=== PATIENT | male | born 1960 | race Caucasian/White ===

== ENCOUNTER 2017-09-04 09:26 | Emergency (ER) | payer BC, MEDICARE ==
[2017-09-04] MEDS ORDERED: METOCLOPRAMIDE HCL INJ/PF 10 MG/2 ML SDV IV ONE (09:38)
[2017-09-04] MEDS ORDERED: NORMAL SALINE 1000 ML 1,000 ML IV ONE (09:38)
--- NOTE | 2017-09-04 09:53 | ER Document Report ---
ED General - General Chief Complaint: Nausea/Vomiting/Diarrhea Stated Complaint: WEAKNESS Time Seen by Provider: 09/04/17 09:38 Mode of Arrival: Medic Information source: Patient Notes: 56-year-old male history of hiatal hernia repair multiple surgeries on the abdomen presents with complaints of nausea vomiting. Patient notes he is consistently nauseous vomiting and having abdominal pain every single day. Patient is noted to state that he is going to [place] on the to have experimental medication for this TRAVEL OUTSIDE OF THE [place] IN LAST 30 DAYS: No - HPI Onset: Other Onset/Duration: Persistent Quality of pain: Achy Severity: Mild Pain Level: 2 Associated symptoms: Nausea, Vomiting Exacerbated by: Denies Relieved by: Other - Intermittently nausea vomiting Similar symptoms previously: Yes Recently seen / treated by doctor: Yes - Related Data Allergies/Adverse Reactions: celecoxib [From Celebrex] Allergy (Verified 09/04/17 09:39) ibuprofen [From Motrin] Allergy (Verified 09/04/17 09:39) Past Medical History - Social History Smoking Status: Current Every Day Smoker Cigarette use (# per day): Yes Chew tobacco use (# tins/day): No Smoking Education Provided: No Frequency of alcohol use: Occasional Drug Abuse: None Family History: Reviewed & Not Pertinent Patient has suicidal ideation: No Patient has homicidal ideation: No - Past Medical History Cardiac Medical History: Reports: Hx Congestive Heart Failure, Hx Hypertension Renal/ Medical History: Denies: Hx Peritoneal Dialysis Past Surgical History: Reports: Hx Abdominal Surgery, Hx Appendectomy, Hx Orthopedic Surgery - L spine, Hx Tonsillectomy - Immunizations Hx Diphtheria, Pertussis, Tetanus Vaccination: Yes Review of Systems - Review of Systems Notes: REVIEW OF SYSTEMS: CONSTITUTIONAL : Denies fever, chills, or sweats. Denies recent illness. EENT: Denies eye, ear, throat, or mouth pain or symptoms. Denies nasal or sinus congestion or discharge. Denies throat, tongue, or mouth swelling or difficulty swallowing. CARDIOVASCULAR: Denies chest pain. Denies palpitations or racing or irregular heart beat. Denies ankle edema. RESPIRATORY: Denies cough, cold, or chest congestion. Denies shortness of breath, difficulty breathing, or wheezing. GASTROINTESTINAL: Admits to nausea vomiting GENITOURINARY: Denies difficulty urinating, painful urination, burning, frequency, blood in urine, or discharge. MUSCULOSKELETAL: Denies back or neck pain or stiffness. Denies joint pain or swelling. SKIN: Denies rash, lesions or sores. HEMATOLOGIC : Denies easy bruising or bleeding. LYMPHATIC: Denies swollen, enlarged glands. NEUROLOGICAL: Denies confusion or altered mental status. Denies passing out or loss of consciousness. Denies dizziness or lightheadedness. Denies headache. Denies weakness or paralysis or loss of use of either side. Denies problems with gait or speech. Denies sensory loss, numbness, or tingling. Denies seizures. PSYCHIATRIC: Denies anxiety or stress. Denies depression, suicidal ideation, or homicidal ideation. ALL OTHER SYSTEMS REVIEWED AND NEGATIVE. Dictation was performed using [employer] voice recognition software PHYSICAL EXAMINATION: GENERAL: Well-appearing, well-nourished and in no acute distress. HEAD: Atraumatic, normocephalic. EYES: Pupils equal round and reactive to light, extraocular movements intact, sclera anicteric, conjunctiva are normal. ENT: Nares patent, oropharynx clear without exudates. Moist mucous membranes. NECK: Normal range of motion, supple without lymphadenopathy LUNGS: Breath sounds clear to auscultation bilaterally and equal. No wheezes rales or rhonchi. HEART: Regular rate and rhythm without murmurs ABDOMEN: Soft, nontender, nondistended abdomen. No guarding, no rebound. No masses appreciated. Postsurgical changes noted Musculoskeletal: Normal range of motion, no pitting or edema. No cyanosis. NEUROLOGICAL: Cranial nerves grossly intact. Normal speech, normal gait. Normal sensory, motor exams PSYCH: Normal mood, normal affect. SKIN: Warm, Dry, normal turgor, no rashes or lesions noted. Physical Exam - Vital signs Vitals: Temp 98 F 09/04/17 09:36 Course - Re-evaluation Re-evalutation: 09/04/17 10:03 Patient will be given nausea pain control IV fluids, he is at his chronic state , he does have follow-up on the with this experimental medication tendency and I do not see any specific treatment that we can give him at this time that would actually cure him therefore he must continue with this follow-up 09/04/17 11:45 Lab work notes no life-threatening issues, patient was given nausea control has not vomited in the emergency department will be discharged home After performing a Medical Screening Examination, I estimate there is LOW risk for ACUTE APPENDICITIS, BOWEL OBSTRUCTION, ACUTE CHOLECYSTITIS, PERFORATED DIVERTICULITIS, INCARCERATED HERNIA, PANCREATITIS, TESTICULAR TORSION or PERFORATED ULCER, thus I consider the discharge disposition reasonable. Also, there is no evidence or peritonitis, sepsis, or toxicity. I have reevaluated this patient multiple times and no significant life threatening changes are noted. The patient and I have discussed the diagnosis and risks, and we agree with discharging home with close follow-up with the understanding that symptoms and presentations can change. We also discussed returning to the Emergency Department immediately if new or worsening symptoms occur. We have discussed the symptoms which are most concerning (e.g., bloody stool, fever, changing or worsening pain, intractable vomiting - standard verbal up date) that necessitate immediate return. - Vital Signs Vital signs: Temp Pulse Resp BP Pulse Ox 98 F 22 H 172/94 H 98 09/04/17 09:36 09/04/17 11:00 09/04/17 11:00 09/04/17 11:00 - Laboratory Result Diagrams: 09/04/17 09:38 09/04/17 09:38 Laboratory results interpreted by me: 09/04/17 09/04/17 09/04/17 09:38 09:38 10:30 Hgb 12.8 L RDW 15.4 H Carbon Dioxide 21 L Glucose 114 H Urine Glucose (UA) 150 H Discharge - Discharge Clinical Impression: Nausea vomiting and diarrhea Condition: Stable Disposition: HOME, SELF-CARE Instructions: Vomiting ([facility]) Additional Instructions: Follow up with your physician tomorrow for further care or return to the ED IMMEDIATELY if symptoms worsen or new concerns occur. If you cannot afford to follow up with your primary care physician a list of low cost clinics have been provided at the end of your discharge papers as well. Prescriptions: Promethazine HCl [Promethegan] 50 mg RC Q6 #14 supp.rect
[2017-09-04 09:58] LABS: ABSOLUTE LYMPHOCYTES (AUTO) 1.9 10^3/uL (0.5-4.7); ABSOLUTE MONOCYTES (AUTO) 0.8 10^3/uL (0.1-1.4); ABSOLUTE NEUT (AUTO) 5.1 10^3/uL (1.7-8.2); BASOPHILS % (AUTO) 0.3 % (0-2); EOSINOPHILS % (AUTO) 0.6 % (0-6); HEMATOCRIT 38.3 % (37.9-51.0); HEMOGLOBIN 12.8 g/dL (13.5-17.0); HGB HCT DIFFERENCE 0.1; LYMPHOCYTES % (AUTO) 24.3 % (13-45); MEAN CORPUSCULAR HEMOGLOBIN 27.4 pg (27.0-33.4); MEAN CORPUSCULAR HGB CONC 33.4 g/dL (32.0-36.0); MEAN CORPUSCULAR VOLUME 82 fl (80-97); MONOCYTES % (AUTO) 9.9 % (3-13); RED BLOOD COUNT 4.68 10^6/uL (4.35-5.55); RED CELL DISTRIBUTION WIDTH 15.4 % (11.5-14.0); SEGMENTED NEUTROPHILS % (AUTO) 64.9 % (42-78); WHITE BLOOD COUNT 7.8 10^3/uL (4.0-10.5)
[2017-09-04 10:56] LABS: ALANINE AMINOTRANSFERASE 23 U/L (21-72); ALBUMIN 4.1 g/dL (3.5-5.0); ALKALINE PHOSPHATASE 86 U/L (38-126); ANION GAP 13 (5-19); ASPARTATE AMINO TRANSFERASE 17 U/L (17-59); BILIRUBIN,DIRECT 0.4 mg/dL (0.0-0.4); BILIRUBIN,TOTAL 0.5 mg/dL (0.2-1.3); BLOOD UREA NITROGEN 9 mg/dL (7-20); CALCIUM 9.4 mg/dL (8.4-10.2); CARBON DIOXIDE 21 mmol/L (22-30); CHLORIDE 105 mmol/L (98-107); CREATININE RESULT 0.88 mg/dL (0.52-1.25); GLUCOSE 114 mg/dL (75-110); LIPASE 38.7 U/L (23-300); POTASSIUM 3.6 mmol/L (3.6-5.0); SODIUM 139.3 mmol/L (137-145); TOTAL PROTEIN 6.8 g/dL (6.3-8.2)
[2017-09-04 10:59] LABS: APPEARANCE,URINE CLEAR; BILIRUBIN,URINE NEGATIVE (NEGATIVE); GLUCOSE, URINE 150 mg/dL (NEGATIVE); KETONES,URINE NEGATIVE (NEGATIVE); LEUKOCYTE ESTERASE,URINE NEGATIVE (NEGATIVE); NITRITE,URINE NEGATIVE (NEGATIVE); PROTEIN,URINE NEGATIVE (NEGATIVE); URINE SPECIFIC GRAVITY 1.012; UROBILINOGEN,URINE NEGATIVE mg/dL (<2.0)
[2017-09-04] MEDS ORDERED: HALOPERIDOL LACTATE INJ 5 MG/1 ML VIAL IV ONE (11:45)
[2017-09-04] MEDS ORDERED: DIPHENHYDRAMINE HCL 50 MG/ML VIAL IV ONE (11:45)
[2017-09-04 12:08] VITALS: BP 180/103
== END 2017-09-04 12:08 | disposition home or self-care (01) ==
LOC: ER 09:26
DX: R11.2 Nausea with vomiting, unspecified (principal); R19.7 Diarrhea, unspecified; F17.210 Nicotine dependence, cigarettes, uncomplicated; I50.9 Heart failure, unspecified; I11.0 Hypertensive heart disease with heart failure
CPT/HCPCS: 99285; 96361; 96374; 36415; 96375; 83690; 85025; 80053; 81001; J1200; J1630; J2765; J7030

== ENCOUNTER 2017-12-10 13:51 | Emergency (ER) | payer MEDICARE, BC ==
[2017-12-10] MEDS ORDERED: NORMAL SALINE 1000 ML 1,000 ML IV ONE (14:09)
[2017-12-10] MEDS ORDERED: MORPHINE SULFATE 10 MG/ML INJ IV ONE (14:09)
[2017-12-10] MEDS ORDERED: ONDANSETRON HCL INJ/PF 4 MG/2 ML SDV IV ONE (14:09)
--- NOTE | 2017-12-10 14:11 | ER Document Report ---
ED Medical Screen (RME) - General Chief Complaint: Abdominal Pain Stated Complaint: ABDOMINAL PAIN Time Seen by Provider: 12/10/17 14:08 Mode of Arrival: Wheelchair Information source: Patient TRAVEL OUTSIDE OF THE U.S. IN LAST 30 DAYS: No - HPI Patient complains to provider of: abd pain Onset: Yesterday - pt with abd pain since surgery for hernia repair last year with exacerbation of pain today with N/V and "dry heaves." - Related Data Allergies/Adverse Reactions: celecoxib [From Celebrex] Allergy (Verified 12/10/17 14:04) ibuprofen [From Motrin] Allergy (Verified 12/10/17 14:04) Home Medications: Current Home Medications Oxycodone HCl/Acetaminophen [Percocet 10-325 Mg Tablet] 1 each PO Q6 PRN [History] Scopolamine 1 each TD ASDIR PRN 12/10/17 [History] Past Medical History - Social History Chew tobacco use (# tins/day): No Frequency of alcohol use: None Drug Abuse: None - Past Medical History Cardiac Medical History: Reports: Hx Congestive Heart Failure, Hx Hypertension Renal/ Medical History: Denies: Hx Peritoneal Dialysis Past Surgical History: Reports: Hx Abdominal Surgery, Hx Appendectomy, Hx Orthopedic Surgery - L spine, Hx Tonsillectomy - Immunizations Hx Diphtheria, Pertussis, Tetanus Vaccination: Yes History of Influenza Vaccine for 08/2017 - 01/2018 Season: No Physical Exam - Vital signs Vitals: Temp Pulse Resp BP Pulse Ox 98.2 F 72 20 200/101 H 97 12/10/17 13:55 12/10/17 13:55 12/10/17 13:55 12/10/17 13:55 12/10/17 13:55 Course - Vital Signs Vital signs: Temp Pulse Resp BP Pulse Ox 98.2 F 72 20 200/101 H 97 12/10/17 13:55 12/10/17 13:55 12/10/17 13:55 12/10/17 13:55 12/10/17 13:55
[2017-12-10 15:28] LABS: APPEARANCE,URINE CLEAR; BILIRUBIN,URINE NEGATIVE (NEGATIVE); COLOR,URINE STRAW; GLUCOSE, URINE NEGATIVE (NEGATIVE); KETONES,URINE NEGATIVE (NEGATIVE); LEUKOCYTE ESTERASE,URINE NEGATIVE (NEGATIVE); NITRITE,URINE NEGATIVE (NEGATIVE); PROTEIN,URINE NEGATIVE (NEGATIVE); URINE SPECIFIC GRAVITY 1.009; UROBILINOGEN,URINE NEGATIVE mg/dL (<2.0)
[2017-12-10] MEDS ORDERED: METOCLOPRAMIDE HCL ORAL SOLN 10 MG/10 ML UDCUP PO ONE (16:15)
[2017-12-10] MEDS ORDERED: LIDOCAINE 2% VISCOUS SOLN 20 ML UDCUP PO ONE (16:15)
[2017-12-10] MEDS ORDERED: MAG HYDROX/AL HYDROX/SIMETH SUSP 30 ML UDCUP PO ONE (16:15)
--- NOTE | 2017-12-10 16:15 | ER Document Report ---
ED General - General Chief Complaint: Abdominal Pain Stated Complaint: ABDOMINAL PAIN Time Seen by Provider: 12/10/17 14:08 Mode of Arrival: Wheelchair Notes: Patient is a 57-year-old male who presents emergency department complaining of abdominal pain. Patient past medical history is significant for his complaint today regarding the fact that he has a history of gastroparesis complication from a hiatal hernia repair and fundoplication done a year ago. Patient states that he does follow with pain management for this condition taking home Percocet , Zofran, Reglan and Phenergan. Patient states that he did take all that prior to arrival. Patient states that approximately 8 AM he started having nausea and dry heaving for approximately 3 hours. Patient then states that he had right chest wall pain after dry heaving that is since resolved but intermittently is worse with movement. He otherwise denies any significant nausea or tenderness at this time. He states that he has been having his normal bowel movements and passing gas. He denies any burping that is abnormal for him. Patient's primary care is with Dr. lady Rosado, does not have a manager post. He follows with pain management in [place]. Patient states that he is supposed to go up to [place] in December for some sort of gastric nerve stimulator to help with his gastroparesis. Past medical history significant for hypertension, kidney stones, gastroparesis , congestive heart failure Past surgical history significant for hiatal hernia repair with fundoplication a year ago, previous back surgery, inguinal hernia repair, appendectomy Social history: Former smoker, denies any alcohol or drug use. Allergies to Motrin and Celebrex TRAVEL OUTSIDE OF THE [place] IN LAST 30 DAYS: No - Related Data Allergies/Adverse Reactions: celecoxib [From Celebrex] Allergy (Verified 12/10/17 14:04) ibuprofen [From Motrin] Allergy (Verified 12/10/17 14:04) Home Medications: Current Home Medications Oxycodone HCl/Acetaminophen [Percocet 10-325 Mg Tablet] 1 each PO Q6 PRN [History] Scopolamine 1 each TD ASDIR PRN 12/10/17 [History] Past Medical History - General Information source: Patient - Social History Smoking Status: Former Smoker Chew tobacco use (# tins/day): No Frequency of alcohol use: None Drug Abuse: None Family History: Reviewed & Not Pertinent Patient has suicidal ideation: No Patient has homicidal ideation: No - Past Medical History Cardiac Medical History: Reports: Hx Congestive Heart Failure, Hx Hypertension Renal/ Medical History: Denies: Hx Peritoneal Dialysis Past Surgical History: Reports: Hx Abdominal Surgery, Hx Appendectomy, Hx Orthopedic Surgery - L spine, Hx Tonsillectomy - Immunizations Hx Diphtheria, Pertussis, Tetanus Vaccination: Yes Review of Systems - Review of Systems Constitutional: No symptoms reported Cardiovascular: No symptoms reported Respiratory: No symptoms reported Gastrointestinal: See HPI Musculoskeletal: See HPI -: Yes All other systems reviewed and negative Physical Exam - Vital signs Vitals: Temp Pulse Resp BP Pulse Ox 98.2 F 72 20 200/101 H 97 12/10/17 13:55 12/10/17 13:55 12/10/17 13:55 12/10/17 13:55 12/10/17 13:55 - Notes Notes: PHYSICAL EXAM GENERAL: Alert, interacts well. HEAD: Normocephalic, atraumatic. EYES: Pupils equal, round, and reactive to light. Extraocular movements intact. ENT: Oral mucosa moist, tongue midline. NECK: Full range of motion. Supple. Trachea midline. LUNGS: Clear to auscultation bilaterally, no wheezes, rales, or rhonchi. No respiratory distress. HEART: Regular rate and rhythm. No murmurs, gallops, or rubs. ABDOMEN: Soft, nondistended, nontender. No guarding, rebound, or rigidity.. Bowel sounds present in all 4 quadrants. EXTREMITIES: Moves all 4 extremities spontaneously. No edema, radial and dorsalis pedis pulses 2/4 bilaterally. No cyanosis. NEUROLOGICAL: Alert and oriented x4. Normal speech. PSYCH: Normal affect, normal mood. SKIN: Warm, dry, normal turgor. No rashes or lesions noted. Course - Re-evaluation Re-evalutation: 12/10/17 18:29 Patient is a 57-year-old male who is hemodynamically stable, no acute distress and afebrile. CT of the abdomen pelvis with IV contrast was ordered up in triage. Labs do not show any evidence of leukocytosis or anemia. Chemistry stable without any evidence of electrolyte abnormalities, liver failure, AK I. Lipase is normal. Urinalysis without evidence of infection. CT of the abdomen pelvis with IV contrast shows evidence of proximal small bowel dilation. I did discuss these results with surgical list Dr. Mancini who states that this patient needs a scan with p.o. contrast to see if it is passing this area otherwise ruling out need for admission for small bowel obstruction. 12/10/17 18:37 Went to go discussed the plan with the patient. When I entered the room there was Nepali food sitting on the countertop. Patient states that he did eat some of it days not had any pain is been able to keep it down. Discussed with him that the surgeon had recommended an additional CT scan with p.o. contrast but if he feels like his pain is completely resolved and that he is tolerating food there is no indication for this test at this time if he would prefer to go home and follow-up with us as needed if his symptoms return. Patient states that he does not want a CT scan and he would rather go home. Discussed with him strict return precautions and otherwise is stable for discharge home. I did review this new plan with Dr. Mancini who is agreeable. - Vital Signs Vital signs: Temp Pulse Resp BP Pulse Ox 98.2 F 72 22 H 185/112 H 100 12/10/17 13:55 12/10/17 13:55 12/10/17 18:06 12/10/17 18:06 12/10/17 18:06 - Laboratory Result Diagrams: 12/10/17 16:46 12/10/17 16:46 Laboratory results interpreted by me: 12/10/17 12/10/17 16:46 16:46 Hgb 11.1 L Hct 35.1 L MCH 25.2 L MCHC 31.7 L RDW 14.4 H Chloride 108 H AST 15 L Lipase 21.1 L - Diagnostic Test Radiology reviewed: Image reviewed, Reports reviewed Discharge - Discharge Clinical Impression: Gastroparesis Hypertension Qualifiers: Hypertension type: unspecified Qualified Code(s): I10 - Essential (primary) hypertension Condition: Good Disposition: HOME, SELF-CARE Instructions: Bowel Obstruction ([facility]) Additional Instructions: You have been seen in the Emergency Department (ED) today for nausea and vomiting. Your work up today is consistent with your history of gastroparesis. Follow up with your doctor as soon as possible regarding today's emergent visit and your symptoms of nausea. Return to the Emergency Department (ED) if you develop abdominal pain, bloody vomiting, bloody diarrhea, if you are unable to tolerate fluids due to vomiting , or if you develop other symptoms that concern you. Forms: Elevated Blood Pressure
[2017-12-10 17:10] LABS: ABSOLUTE BASOPHILS # (AUTO) 0.1 10^3/uL (0.0-0.2); ABSOLUTE EOSINOPHILS # (AUTO) 0.1 10^3/uL (0.0-0.6); ABSOLUTE LYMPHOCYTES (AUTO) 1.9 10^3/uL (0.5-4.7); ABSOLUTE MONOCYTES (AUTO) 0.6 10^3/uL (0.1-1.4); ABSOLUTE NEUT (AUTO) 2.5 10^3/uL (1.7-8.2); BASOPHILS % (AUTO) 1.7 % (0-2); EOSINOPHILS % (AUTO) 2.2 % (0-6); HEMATOCRIT 35.1 % (37.9-51.0); HEMOGLOBIN 11.1 g/dL (13.5-17.0); LYMPHOCYTES % (AUTO) 35.8 % (13-45); MEAN CORPUSCULAR HEMOGLOBIN 25.2 pg (27.0-33.4); MEAN CORPUSCULAR HGB CONC 31.7 g/dL (32.0-36.0); MEAN CORPUSCULAR VOLUME 80 fl (80-97); MONOCYTES % (AUTO) 11.3 % (3-13); PLATELET COUNT 237 10^3/uL (150-450); RED BLOOD COUNT 4.41 10^6/uL (4.35-5.55); RED CELL DISTRIBUTION WIDTH 14.4 % (11.5-14.0); TOTAL CELLS COUNTED % (AUTO) 100 %; WHITE BLOOD COUNT 5.2 10^3/uL (4.0-10.5)
[2017-12-10 17:31] LABS: ALANINE AMINOTRANSFERASE 24 U/L (21-72); ALKALINE PHOSPHATASE 86 U/L (38-126); ANION GAP 12 (5-19); ASPARTATE AMINO TRANSFERASE 15 U/L (17-59); BILIRUBIN,DIRECT 0.2 mg/dL (0.0-0.4); BILIRUBIN,TOTAL 0.5 mg/dL (0.2-1.3); BLOOD UREA NITROGEN 7 mg/dL (7-20); CALCIUM 9.3 mg/dL (8.4-10.2); CARBON DIOXIDE 23 mmol/L (22-30); CHLORIDE 108 mmol/L (98-107); GLUCOSE 84 mg/dL (75-110); LIPASE 21.1 U/L (23-300); POTASSIUM 3.9 mmol/L (3.6-5.0); SODIUM 143.2 mmol/L (137-145); TOTAL PROTEIN 6.3 g/dL (6.3-8.2)
--- NOTE | 2017-12-10 18:04 | RADIOLOGY REPORT (SQ) ---
EXAM DESCRIPTION: CT ABD/PELVIS WITH IV ONLY COMPLETED DATE/TIME: 12/10/2017 5:51 pm REASON FOR STUDY: ABD PAIN COMPARISON: None. TECHNIQUE: CT scan of the abdomen and pelvis performed using helical scanning technique with dynamic intravenous contrast injection. No oral contrast. Images reviewed with lung, soft tissue, and bone windows. Reconstructed coronal and sagittal MPR images reviewed. Delayed images for evaluation of the urinary system also acquired. All images stored on PACS. All CT scanners at this facility use dose modulation, iterative reconstruction, and/or weight based d osing when appropriate to reduce radiation dose to as low as reasonably achievable (ALARA). [facility]: Dose Right [facility]: CareDose [facility]: Dose Right [facility]: Teradose 4D [facility]: WeGame CONTRAST TYPE AND DOSE: contrast/concentration: Isovue 370.00 mg/ml; Total Contrast Delivered: 100.0 ml; Total Saline Delivered: 72.0 ml RENAL FUNCTION: BUN 7 creatinine 0.91. RADIATION DOSE: CT Rad equipment meets quality standard of care and radiation dose reduction techniq ues were employed. CTDIvol: 15.1 - 18.8 mGy. DLP: 1808 mGy-cm.. LIMITATIONS: None. FINDINGS: LOWER CHEST: No significant findings. No nodules or infiltrates. LIVER: Normal size. No masses. No dilated ducts. SPLEEN: Normal size. No focal lesions. PANCREAS: No masses. No significant calcifications. No adjacent inflammation or peripancreatic fluid collections. Pancreatic duct not dilated. GALLBLADDER: No identified stones by CT criteria. No inflammatory changes to suggest cholecystitis. ADRENAL GLANDS: No significant masses or asymmetry. RIGHT KIDNEY AND URETER: No solid masses. 3 mm calculus in a lower pole calyx. No hydronephrosis or hydroureter. LEFT KIDNEY AND URETER: Cortical cyst. No solid masses. 5 mm calyceal calculus. No hydronephrosi s or hydroureter. AORTA AND VESSELS: No aneurysm. No dissection. Renal arteries, SMA, celiac without stenosis. RETROPERITONEUM: No retroperitoneal adenopathy, hemorrhage or masses. BOWEL AND PERITONEAL CAVITY: Small hiatal hernia. Surgical changes involving the stomach. Mild dila tion of the proximal small bowel. Distal small bowel not distended. A few scattered colonic diverti culi. No masses or inflammatory changes. No free fluid or peritoneal masses. APPENDIX: Surgically absent. PELVIS: No mass. No free fluid. Normal bladder. ABDOMINAL WALL: No masses. No hernias. BONES: No significant or acute findings. OTHER: No other significant finding. IMPRESSION: 1. MILD DILATION OF PROXIMAL SMALL BOWEL. THIS COULD REPRESENT MILD ILEUS. EARLY PARTIAL OBSTRUCTIO N CANNOT BE ENTIRELY EXCLUDED. 2. MILD COLONIC DIVERTICULOSIS. NO CT FINDINGS OF ACUTE DIVERTICULITIS. 3. SMALL NONOBSTRUCTING CALYCEAL CALCULI IN BOTH KIDNEYS. CORTICAL CYST IN THE LEFT KIDNEY. 4. NO OTHER SIGNIFICANT OR ACUTE FINDING IN THE ABDOMEN OR PELVIS ON CT SCAN WITH IV CONTRAST. TECHNICAL DOCUMENTATION: JOB ID: [id number] Quality ID # [id number]: Final reports with documentation of one or more dose reduction techniques (e.g., Au tomated exposure control, adjustment of the mA and/or kV according to patient size, use of iterative reconstruction technique) 2010 [employer]- All Rights Reserved
[2017-12-10 18:46] VITALS: BP 185/112
== END 2017-12-10 18:51 | disposition home or self-care (01) ==
LOC: ER 13:51
DX: K31.84 Gastroparesis (principal); I10 Essential (primary) hypertension; Z98.890 Other specified postprocedural states; Z79.899 Other long term (current) drug therapy; Z79.891 Long term (current) use of opiate analgesic; Z87.442 Personal history of urinary calculi; Z90.49 Acquired absence of other specified parts of digestive tract; Z87.891 Personal history of nicotine dependence; Z88.6 Allergy status to analgesic agent; Z88.8 Allergy status to other drugs, medicaments and biological substances
CPT/HCPCS: 99284; 96361; 96374; 96375; 36415; 83690; 85025; 80053; 81001; 74177; J3490; A9270; J2270; J2405; J7030

== ENCOUNTER 2017-12-18 23:43 | Emergency (ER) | payer BC, MEDICARE ==
[2017-12-18] MEDS ORDERED: HALOPERIDOL LACTATE INJ 5 MG/1 ML VIAL IV ONE (23:52)
[2017-12-18] MEDS ORDERED: NORMAL SALINE 1000 ML 1,000 ML IV ONE (23:52)
--- NOTE | 2017-12-19 00:19 | ER Document Report ---
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 Patient has had a fundal application and is unable to vomit. He notes he continues to have loose bowel movements as well as pass flatus. His pain is described as a generalized, constant, aching pain. Nothing improves or worsens the pain including the medications he has been taking. He is scheduled to go to [place] for a nerve stimulator implantation. He denies any fever or constitutional symptoms. Nothing is particularly different about his symptoms today relative to his chronic daily symptoms. TRAVEL OUTSIDE OF THE [place] IN LAST 30 DAYS: No - Related Data Allergies/Adverse Reactions: celecoxib [From Celebrex] Allergy (Verified 12/10/17 14:04) ibuprofen [From Motrin] Allergy (Verified 12/10/17 14:04) Past Medical History - General Information source: Patient - Social History Smoking Status: Former Smoker Frequency of alcohol use: None Drug Abuse: None Lives with: Spouse/Significant other Family History: Reviewed & Not Pertinent Patient has suicidal ideation: No Patient has homicidal ideation: No - Past Medical History Cardiac Medical History: Reports: Hx Congestive Heart Failure, Hx Hypertension Renal/ Medical History: Denies: Hx Peritoneal Dialysis GI Medical History: Reports: Hx Hiatal Hernia Past Surgical History: Reports: Hx Abdominal Surgery, Hx Appendectomy, Hx Orthopedic Surgery - L spine, Hx Tonsillectomy - Immunizations Hx Diphtheria, Pertussis, Tetanus Vaccination: Yes Review of Systems - Review of Systems Notes: Constitutional: Negative for fever. HENT: Negative for sore throat. Eyes: Negative for visual changes. Cardiovascular: Negative for chest pain. Respiratory: Negative for shortness of breath. Gastrointestinal: Positive for abdominal pain and nausea Genitourinary: Negative for dysuria. Musculoskeletal: Negative for back pain. Skin: Negative for rash. Neurological: Negative for headaches, weakness or numbness. 10 point ROS negative except as marked above and in HPI. Physical Exam - Vital signs Vitals: Temp Pulse Resp BP Pulse Ox 97.9 F 75 16 179/82 H 97 12/19/17 00:00 12/19/17 00:00 12/19/17 00:00 12/19/17 00:00 12/19/17 00:00 Interpretation: Hypertensive Notes: PHYSICAL EXAMINATION: GENERAL: Well-appearing, well-nourished and in no acute distress. HEAD: Atraumatic, normocephalic. EYES: Pupils equal round and reactive to light, extraocular movements intact, sclera anicteric, conjunctiva are normal. ENT: nares patent, oropharynx clear without exudates. Moist mucous membranes. NECK: Normal range of motion, supple without lymphadenopathy LUNGS: Breath sounds clear to auscultation bilaterally and equal. No wheezes rales or rhonchi. HEART: Regular rate and rhythm without murmurs ABDOMEN: Soft, no focal abdominal tenderness, rebound or guarding. Moderate distention. D. EXTREMITIES: Normal range of motion, no pitting or edema. No cyanosis. NEUROLOGICAL: No focal neurological deficits. Moves all extremities spontaneously and on command. PSYCH: Normal mood, normal affect. SKIN: Warm, Dry, normal turgor, no rashes or lesions noted. Course - Re-evaluation Re-evalutation: 12/19/17 00:17 Patient presents with ongoing chronic generalized abdominal pain with associated nausea but is unable to vomit secondary to a fundoplication that was completed during his prior surgery. Nothing is new or different regarding his symptoms today relative to the past year although he states that he is tired of feeling this way. Patient was seen in the emergency room for a similar issue less than 1 month ago, had a CT scan of the time that showed a possible ileus but was able to eat Greek food in the emergency department without any apparent difficulty so subsequently was discharged. On abdominal examination patient does not have any focal rebound or guarding. Otherwise nontoxic in appearance. Does not appear clinically dehydrated. Has been able tolerate oral fluids already. Will obtain basic laboratories, 2 view of the abdomen to evaluate for obstruction, and provide treatment with IV fluids, haloperidol, and pain control. I do not wish to repeat a CT abdomen pelvis as the patient had one of these less than 2 weeks ago and notes his symptoms are not new or different today. I have a very low clinical suspicion for a bowel perforation, mesenteric ischemia, acute biliary pathology or acute appendicitis based on exam and history. Will obtain 2 view of the abdomen to further exclude an acute obstruction for which have a low clinical suspicion as patient is passing flatus and having regular bowel movements. 12/19/17 01:48 2 view of the abdomen and labs are unremarkable. Patient continues to be in no acute distress, vitals within normal limits. At this time will discharge with return precautions and follow-up recommendations. Verbal discharge instructions given a the bedside and opportunity for questions given. Medication warnings reviewed. Patient is in agreement with this plan and has verbalized understanding of return precautions and the need for primary care follow-up in the next 24-72 hours. - Vital Signs Vital signs: Temp Pulse Resp BP Pulse Ox 97.9 F 75 16 179/82 H 97 12/19/17 00:00 12/19/17 00:00 12/19/17 00:00 12/19/17 00:00 12/19/17 00:00 - Laboratory Result Diagrams: 12/19/17 00:32 12/19/17 00:32 Laboratory results interpreted by me: 12/19/17 12/19/17 00:32 00:32 RBC 4.16 L Hgb 10.4 L Hct 32.8 L MCV 79 L MCH 25.1 L MCHC 31.8 L RDW 14.7 H Glucose 189 H AST 14 L Total Protein 6.1 L Discharge - Discharge Clinical Impression: Chronic abdominal pain, Gastroparesis Condition: Good Disposition: HOME, SELF-CARE Additional Instructions: Your labs and x-ray are normal today. Please continue to follow-up with your general doctors regarding your chronic abdominal pain. Return if you become unable to tolerate oral fluid intake, have worsening of your pain, develop a fever of greater than 101F, or any other symptoms that are worrisome to you.
[2017-12-19 00:53] LABS: ABSOLUTE BASOPHILS # (AUTO) 0.1 10^3/uL (0.0-0.2); ABSOLUTE EOSINOPHILS # (AUTO) 0.1 10^3/uL (0.0-0.6); ABSOLUTE MONOCYTES (AUTO) 0.9 10^3/uL (0.1-1.4); ABSOLUTE NEUT (AUTO) 4.4 10^3/uL (1.7-8.2); BASOPHILS % (AUTO) 0.8 % (0-2); HEMATOCRIT 32.8 % (37.9-51.0); HEMOGLOBIN 10.4 g/dL (13.5-17.0); LYMPHOCYTES % (AUTO) 26.2 % (13-45); MEAN CORPUSCULAR HEMOGLOBIN 25.1 pg (27.0-33.4); MEAN CORPUSCULAR HGB CONC 31.8 g/dL (32.0-36.0); MEAN CORPUSCULAR VOLUME 79 fl (80-97); MONOCYTES % (AUTO) 11.6 % (3-13); PLATELET COUNT 173 10^3/uL (150-450); RED BLOOD COUNT 4.16 10^6/uL (4.35-5.55); RED CELL DISTRIBUTION WIDTH 14.7 % (11.5-14.0); SEGMENTED NEUTROPHILS % (AUTO) 59.4 % (42-78); TOTAL CELLS COUNTED % (AUTO) 100 %; WHITE BLOOD COUNT 7.5 10^3/uL (4.0-10.5)
[2017-12-19 00:54] LABS: ALANINE AMINOTRANSFERASE 22 U/L (21-72); ALBUMIN 3.9 g/dL (3.5-5.0); ALKALINE PHOSPHATASE 78 U/L (38-126); ANION GAP 11 (5-19); ASPARTATE AMINO TRANSFERASE 14 U/L (17-59); BILIRUBIN,DIRECT 0.2 mg/dL (0.0-0.4); BILIRUBIN,TOTAL 0.2 mg/dL (0.2-1.3); BLOOD UREA NITROGEN 14 mg/dL (7-20); CARBON DIOXIDE 22 mmol/L (22-30); CHLORIDE 107 mmol/L (98-107); GLUCOSE 189 mg/dL (75-110); LIPASE 28.4 U/L (23-300); POTASSIUM 3.7 mmol/L (3.6-5.0); SODIUM 139.7 mmol/L (137-145); TOTAL PROTEIN 6.1 g/dL (6.3-8.2)
--- NOTE | 2017-12-19 01:09 | RADIOLOGY REPORT (SQ) ---
EXAM DESCRIPTION: ABDOMEN 2 VIEWS CLINICAL HISTORY: 57 years, Male, eval obstruction COMPARISON: None. NUMBER OF VIEWS: 2 LIMITATIONS: None. FINDINGS: Few nonspecific air-fluid levels of the right lower abdomen. No dilated bowel. Otherwise, unremarkable intestinal gas pattern. 0.6 cm left renal stone consistent with prior CT, 12/10/2017. Surgical clip at the gastroesophageal junction. Mild osteoarthritis. Bridging osteophytes at the L4-L5 level. IMPRESSION: No acute findings. 0.6 cm left renal stone.
[2017-12-19] MEDS ORDERED: FENTANYL CITRATE INJ/PF 100 MCG/2 ML AMPUL IV ONE (01:36)
[2017-12-19] MEDS ORDERED: HYDROMORPHONE HCL INJ/PF 2 MG/ML AMPULE IV ONE (01:36)
[2017-12-19 02:35] VITALS: BP 157/88
== END 2017-12-19 02:32 | disposition home or self-care (01) ==
LOC: ER 23:43
DX: G89.29 Other chronic pain (principal); R10.9 Unspecified abdominal pain; K31.84 Gastroparesis; I50.9 Heart failure, unspecified; I11.0 Hypertensive heart disease with heart failure; Z88.6 Allergy status to analgesic agent
CPT/HCPCS: 99284; 96361; 96374; 96375; 36415; 83690; 85025; 80053; 74019; J3010; J1630; J7030

== ENCOUNTER 2018-01-06 18:50 | Emergency (ER) | payer BC, MEDICARE ==
[2018-01-06] MEDS ORDERED: NORMAL SALINE 1000 ML 1,000 ML IV ONE (19:35)
[2018-01-06] MEDS ORDERED: ONDANSETRON HCL INJ/PF 4 MG/2 ML SDV IV ONE (19:35)
--- NOTE | 2018-01-06 19:35 | ER Document Report ---
ED Medical Screen (RME) - General Chief Complaint: Vomiting Stated Complaint: VOMITING Time Seen by Provider: 01/06/18 19:30 Mode of Arrival: Wheelchair Information source: Patient Notes: 57 yo male presents to ed for abdominal pain and vomiting since am. Had a H Hernia surgery year ago that went bad and went to [place] for possible stomach stimulator. got home yesterday. I assesses in RME for triage orders, will be assessed by another provider. TRAVEL OUTSIDE OF THE [place] IN LAST 30 DAYS: No - Related Data Allergies/Adverse Reactions: celecoxib [From Celebrex] Allergy (Verified 01/06/18 18:50) ibuprofen [From Motrin] Allergy (Verified 01/06/18 18:50) Past Medical History - Past Medical History Cardiac Medical History: Reports: Hx Congestive Heart Failure, Hx Hypertension Renal/ Medical History: Denies: Hx Peritoneal Dialysis GI Medical History: Reports: Hx Hiatal Hernia Past Surgical History: Reports: Hx Abdominal Surgery, Hx Appendectomy, Hx Orthopedic Surgery - L spine, Hx Tonsillectomy - Immunizations Hx Diphtheria, Pertussis, Tetanus Vaccination: Yes History of Influenza Vaccine for 08/2017 - 01/2018 Season: No Physical Exam - Vital signs Vitals: Temp Pulse Resp BP Pulse Ox 98.6 F 89 20 155/91 H 96 01/06/18 18:57 01/06/18 18:57 01/06/18 18:57 01/06/18 18:57 01/06/18 18:57 Course - Vital Signs Vital signs: Temp Pulse Resp BP Pulse Ox 98.6 F 89 20 155/91 H 96 01/06/18 18:57 01/06/18 18:57 01/06/18 18:57 01/06/18 18:57 01/06/18 18:57
[2018-01-06 20:29] LABS: ABSOLUTE EOSINOPHILS # (AUTO) 0.2 10^3/uL (0.0-0.6); ABSOLUTE LYMPHOCYTES (AUTO) 2.5 10^3/uL (0.5-4.7); ABSOLUTE MONOCYTES (AUTO) 0.8 10^3/uL (0.1-1.4); BASOPHILS % (AUTO) 0.2 % (0-2); EOSINOPHILS % (AUTO) 2.2 % (0-6); HEMATOCRIT 34.7 % (37.9-51.0); HEMOGLOBIN 10.9 g/dL (13.5-17.0); LYMPHOCYTES % (AUTO) 33.8 % (13-45); MEAN CORPUSCULAR HEMOGLOBIN 24.2 pg (27.0-33.4); MEAN CORPUSCULAR HGB CONC 31.4 g/dL (32.0-36.0); MEAN CORPUSCULAR VOLUME 77 fl (80-97); MONOCYTES % (AUTO) 10.1 % (3-13); PLATELET COUNT 267 10^3/uL (150-450); RED CELL DISTRIBUTION WIDTH 15.2 % (11.5-14.0); SEGMENTED NEUTROPHILS % (AUTO) 53.7 % (42-78); TOTAL CELLS COUNTED % (AUTO) 100 %; WHITE BLOOD COUNT 7.4 10^3/uL (4.0-10.5)
[2018-01-06] MEDS ORDERED: ACETAMINOPHEN 325 MG TABLET PO ONE (20:46)
[2018-01-06 20:49] LABS: APPEARANCE,URINE CLEAR; BILIRUBIN,URINE NEGATIVE (NEGATIVE); COLOR,URINE YELLOW; GLUCOSE, URINE NEGATIVE (NEGATIVE); KETONES,URINE NEGATIVE (NEGATIVE); LEUKOCYTE ESTERASE,URINE NEGATIVE (NEGATIVE); NITRITE,URINE NEGATIVE (NEGATIVE); PROTEIN,URINE NEGATIVE (NEGATIVE); URINE SPECIFIC GRAVITY 1.023; UROBILINOGEN,URINE NEGATIVE mg/dL (<2.0)
[2018-01-06 20:52] LABS: ALANINE AMINOTRANSFERASE 18 U/L (21-72); ALBUMIN 4.3 g/dL (3.5-5.0); ALKALINE PHOSPHATASE 97 U/L (38-126); ANION GAP 8 (5-19); ASPARTATE AMINO TRANSFERASE 42 U/L (17-59); BILIRUBIN,DIRECT 0.4 mg/dL (0.0-0.4); BILIRUBIN,TOTAL 0.4 mg/dL (0.2-1.3); BLOOD UREA NITROGEN 15 mg/dL (7-20); CALCIUM 9.4 mg/dL (8.4-10.2); CARBON DIOXIDE 23 mmol/L (22-30); CHLORIDE 109 mmol/L (98-107); GLUCOSE 92 mg/dL (75-110); LIPASE 51.2 U/L (23-300); POTASSIUM 4.1 mmol/L (3.6-5.0); SODIUM 140.3 mmol/L (137-145); TOTAL PROTEIN 6.9 g/dL (6.3-8.2)
--- NOTE | 2018-01-06 21:59 | ER Document Report ---
ED GI/ - General Chief Complaint: Vomiting Stated Complaint: VOMITING Time Seen by Provider: 01/06/18 19:30 Mode of Arrival: Wheelchair Information source: Patient Notes: 57-year-old male presents to ED for abdominal pain and vomiting since a.m. He states he had a hiatal hernia surgery about a year ago that went bad. He went into [facility] just got home yesterday to research having a possible stomach stimulator for his abdominal pain that is been going on for over a year ago. He has a medical history of chronic abdominal pain and chronic gastroparesis after the complicated hiatal hernia surgery. He has nausea and dry heaving which is chronic. He denies any fever. He states his abdominal pain today is different than his normal chronic pain any needs narcotics today. TRAVEL OUTSIDE OF THE [place] IN LAST 30 DAYS: No - HPI Patient complains to provider of: Abdominal pain, Vomiting - Dry heaves and vomiting since morning Onset: This morning Timing/Duration: Persistent - This is a chronic condition Quality of pain: Sharp Severity at maximum: Severe Severity in ED: Severe Pain Level: 5 Location: Epigastric - And generalized abdominal pain Associated symptoms: Nausea, Vomiting Exacerbated by: Denies Relieved by: Denies Similar symptoms previously: Yes Recently seen / treated by doctor: Yes - Related Data Allergies/Adverse Reactions: celecoxib [From Celebrex] Allergy (Verified 01/06/18 19:34) ibuprofen [From Motrin] Allergy (Verified 01/06/18 19:34) Past Medical History - General Information source: Patient - Social History Smoking Status: Former Smoker Cigarette use (# per day): No Chew tobacco use (# tins/day): No Smoking Education Provided: No Frequency of alcohol use: None Drug Abuse: None Lives with: Family Family History: Reviewed & Not Pertinent Patient has suicidal ideation: No Patient has homicidal ideation: No - Past Medical History Cardiac Medical History: Reports: Hx Congestive Heart Failure, Hx Hypertension Pulmonary Medical History: Reports: None EENT Medical History: Reports: None Neurological Medical History: Reports: None Endocrine Medical History: Reports: None Renal/ Medical History: Reports: None Malignancy Medical History: Reports None GI Medical History: Reports: Hx Gastritis, Hx Hiatal Hernia Musculoskeltal Medical History: Reports None Skin Medical History: Reports None Psychiatric Medical History: Reports: None Traumatic Medical History: Reports: None Infectious Medical History: Reports: None Past Surgical History: Reports: Hx Abdominal Surgery - Fundoplication, Hx Appendectomy, Hx Orthopedic Surgery - L spine, Hx Tonsillectomy - Immunizations Hx Diphtheria, Pertussis, Tetanus Vaccination: Yes Review of Systems - Review of Systems Notes: Constitutional: as per HPI. ABSENT: chills, fever(s), headache(s), weight gain , weight loss Eyes: Negative for visual disturbances] Ears: Get a 4 hearing changes] Cardiovascular: Negative for chest pain, dyspnea on exertion, edema, orthropnea , palpitations] Respiratory: Negative for cough, hemoptysis] Gastrointestinal: Positive for abdominal pain, nausea, vomiting, denies constipation, diarrhea, hematemesis, hematochezia, Genitourinary: Denies: dysuria, hematuria Musculoskeletal: Denies joint pain joint swelling] Integumentary: Negative: rash, wounds Neurological: Negative abnormal gait, abnormal speech, confusion, dizziness, focal weakness, syncope Physical Exam - Vital signs Vitals: Temp Pulse Resp BP Pulse Ox 98.6 F 89 20 155/91 H 96 01/06/18 18:57 01/06/18 18:57 01/06/18 18:57 01/06/18 18:57 01/06/18 18:57 - General Notes: PHYSICAL EXAMINATION: GENERAL: Well-appearing, well-nourished and in no acute distress. HEAD: Atraumatic, normocephalic. EYES: Pupils equal round and reactive to light, extraocular movements intact, sclera anicteric, conjunctiva are normal. ENT: Nares patent, oropharynx clear without exudates. Moist mucous membranes. NECK: Normal range of motion, supple without lymphadenopathy LUNGS: Breath sounds clear to auscultation bilaterally and equal. No wheezes rales or rhonchi. HEART: Regular rate and rhythm without murmurs ABDOMEN: Soft, generalized tender, nondistended abdomen. No guarding, no rebound. No masses appreciated. Musculoskeletal: Normal range of motion, no pitting or edema. No cyanosis. NEUROLOGICAL: Cranial nerves grossly intact. Normal speech, normal gait. Normal sensory, motor exams PSYCH: Angry due to not receiving narcotics for his chronic pain. SKIN: Warm, Dry, normal turgor, no rashes or lesions noted. Course - Re-evaluation Re-evalutation: 01/06/18 22:28 Patient presents with ongoing chronic abdominal pain with nausea symptoms from vomiting due to his stated fundoplication and gastroparesis. He states he went to the new doctor in [place] on the seventh and was told that he can only drink a half a cup of Gatorade at a time with saltine crackers on exam he does not have any point tenderness bowel sounds are active throughout there is no rebound or guarding. He is a nontoxic-appearing gentleman who has had ongoing abdominal pain for about a year. I have treated him with Zofran which stopped his nausea and vomiting and Tylenol but he states the pain is the same. I have also given him a liter of fluids and he is able to tolerate his Gatorade with no nausea and vomiting continually is asking for narcotics and I have explained to him with his gastroparesis that orthotics are not appropriate. I have also explained to him that we do not treat chronic pain with narcotics. He just had a CT of the abdomen and pelvis about 2 months ago and today his abdominal x-ray is negative for any air-fluid levels or signs of obstruction. CBC and chemistry are unchanged from his visit on 12/19/2017. Patient and were very upset about being discharged without medications. A consult to Dr. Walker who went in and talked with the patient. He was treated with 1 mg of Dilaudid and 3 mg of Haldol IV and then discharged home. Discharge discussed with patient and warnings and concerns for narcotics discussed with patient and . Instructions given to return to the ED for any increase in pain or any increase in nausea vomiting or any fevers. Patient and were instructed to follow-up with her primary doctor within the next 72 hours - Vital Signs Vital signs: Temp Pulse Resp BP Pulse Ox 98.0 F 86 18 164/91 H 96 01/06/18 23:00 01/06/18 23:00 01/06/18 23:01 01/06/18 23:00 01/06/18 23:00 - Laboratory Result Diagrams: 01/06/18 19:55 01/06/18 19:55 Laboratory results interpreted by me: 01/06/18 01/06/18 19:55 19:55 Hgb 10.9 L Hct 34.7 L MCV 77 L MCH 24.2 L MCHC 31.4 L RDW 15.2 H Chloride 109 H ALT 18 L - Diagnostic Test Radiology reviewed: Image reviewed, Reports reviewed Discharge - Discharge Clinical Impression: Chronic abdominal pain, Gastroparesis HTN (hypertension) Qualifiers: Hypertension type: unspecified Qualified Code(s): I10 - Essential (primary) hypertension Condition: Good Disposition: HOME, SELF-CARE Additional Instructions: Labs and x-rays are normal today. Please continue to follow-up with you primary doctor concerning your chronic abdominal pain. Please follow-up with the doctor in [place] that is supposed to decide on your abdominal stimulator. Return to the emergency room if you are unable to tolerate tolerate oral fluids. Or you develop a temperature above 101F or any other symptoms that are concerning or worrisome for you. Chronic Pain Control Stress, inactivity, and depression make pain more severe regardless of the cause of the pain. Stress and poor physical condition can cause pain such as headaches and backache. Relaxation: Rest in a quiet place with your eyes closed for 20 minutes twice daily. Concentrate on a pleasant image, or simply "feel" your breathing. Clear your mind. Stress management: Deal with your "stressors." Either take action, or eliminate the stressor from your life. Don't let things hang over you. Accept those things you can't change. Nutrition: Eat small, balanced meals -- don't skip, don't overeat. Meals should be high-carbohydrate, low-sugar, low-fat. Exercise: Exercise helps painful conditions and eases stress. Get 30 minutes of moderate exercise, five days a week. Do an activity that does not flare your pain. Precautions: Pain which continues to disrupt daily activities, or which changes in nature, requires a medical evaluation. Pain Clinic referral is available. We do not manage chronic pain in the Emergency Department. We will try to appropriately help you through an acute flare of your chronic painful condition , but for on-going chronic pain that does not improve, you will need to see your private doctor or chest painting leader. We do not provide repeated medication management of chronic painful conditions. If you wish, we can provide the name of local pain management physicians. FOLLOW-UP CARE: If you have been referred to a physician for follow-up care, call the physician s office for an appointment as you were instructed or within the next two days. If you experience worsening or a significant change in your symptoms, notify the physician immediately or return to the Emergency Department at any time for re-evaluation. Forms: Elevated Blood Pressure
--- NOTE | 2018-01-06 21:59 | RADIOLOGY REPORT (SQ) ---
EXAM DESCRIPTION: ACUTE ABDOMEN SERIES COMPLETED DATE/TIME: 01/06/2018 9:50 pm REASON FOR STUDY: upper abdominal pian nausea COMPARISON: 12/19/2017. NUMBER OF VIEWS: Three views. TECHNIQUE: Frontal chest, supine abdomen and upright/decubitus abdomen radiographic images acquired. LIMITATIONS: None. FINDINGS: CHEST: Lungs clear of infiltrates. FREE AIR: None. No abnormal gas collections. BOWEL GAS PATTERN: Nonobstructive pattern. No dilated loops or air fluid levels. CALCIFICATIONS: Left renal calculus. HARDWARE: None in the abdomen. SOFT TISSUES: No gross mass or suggestion of organomegaly. BONES: No acute fracture. No worrisome bone lesions. OTHER: No other significant finding. IMPRESSION: NO RADIOGRAPHIC EVIDENCE FOR ACUTE ABDOMINAL DISEASE. LEFT RENAL CALCULUS. TECHNICAL DOCUMENTATION: JOB ID: [id number] [employer]- All Rights Reserved
[2018-01-06] MEDS ORDERED: KETOROLAC TROMETHAMINE INJ/PF 30 MG/1 ML SDV IV ONE (22:24)
[2018-01-06] MEDS ORDERED: HALOPERIDOL LACTATE INJ 5 MG/1 ML VIAL IV ONE (22:47)
[2018-01-06] MEDS ORDERED: HYDROMORPHONE HCL INJ/PF 2 MG/ML AMPULE IV ONE (22:47)
[2018-01-06 23:01] VITALS: BP 164/91
== END 2018-01-06 23:09 | disposition home or self-care (01) ==
LOC: ER 18:50
DX: G89.29 Other chronic pain (principal); R10.84 Generalized abdominal pain; K31.84 Gastroparesis; R11.2 Nausea with vomiting, unspecified; I10 Essential (primary) hypertension; Z87.19 Personal history of other diseases of the digestive system; Z98.890 Other specified postprocedural states; Z88.8 Allergy status to other drugs, medicaments and biological substances; Z88.6 Allergy status to analgesic agent; Z87.891 Personal history of nicotine dependence; Z90.49 Acquired absence of other specified parts of digestive tract
CPT/HCPCS: 99284; 96361; 96374; 96375; 36415; 83690; 85025; 80053; 81001; 74022; J1630; J1885; J1170; J2405; J7030

== ENCOUNTER 2018-02-27 15:18 | Emergency (ER) | payer BC, MEDICARE ==
[2018-02-27 15:29] VITALS: BP 172/89
[2018-02-27] MEDS ORDERED: NORMAL SALINE 1000 ML 1,000 ML IV PRN (16:21)
[2018-02-27] MEDS ORDERED: DIPHENHYDRAMINE HCL 50 MG/ML VIAL IV ONE (16:21)
[2018-02-27] MEDS ORDERED: PROCHLORPERAZINE EDISYLATE INJ 10 MG/2 ML VIAL IV ONE (16:21)
--- NOTE | 2018-02-27 16:22 | ER Document Report ---
ED Medical Screen (RME) - General Chief Complaint: Nausea/Vomiting Stated Complaint: VOMITING, STOMACH PAIN Time Seen by Provider: 02/27/18 16:16 TRAVEL OUTSIDE OF THE [place] IN LAST 30 DAYS: No - HPI Notes: 02/27/18 16:21 Patient with a history of gastroparesis Misti fundoplication states he has been using the Zofran Reglan Phenergan and Benadryl today with no relief of his nausea nausea ongoing for 3 days - Related Data Allergies/Adverse Reactions: celecoxib [From Celebrex] Allergy (Verified 02/27/18 15:21) ibuprofen [From Motrin] Allergy (Verified 02/27/18 15:21) Past Medical History - Social History Frequency of alcohol use: None Drug Abuse: None - Past Medical History Cardiac Medical History: Reports: Hx Congestive Heart Failure, Hx Hypertension Renal/ Medical History: Denies: Hx Peritoneal Dialysis GI Medical History: Reports: Hx Gastritis, Hx Hiatal Hernia Past Surgical History: Reports: Hx Abdominal Surgery - Fundoplication, Hx Appendectomy, Hx Bowel Surgery, Hx Orthopedic Surgery - L spine, Hx Tonsillectomy - Immunizations Hx Diphtheria, Pertussis, Tetanus Vaccination: Yes History of Influenza Vaccine for 08/2017 - 01/2018 Season: No Review of Systems - Review of Systems Gastrointestinal: Abdominal pain, Nausea, Vomiting -: Yes All other systems reviewed and negative Physical Exam - Vital signs Vitals: Temp Pulse Resp BP Pulse Ox 98.1 F 92 20 172/89 H 96 02/27/18 15:27 02/27/18 15:27 02/27/18 15:27 02/27/18 15:27 02/27/18 15:27 - Abdominal Tenderness: Nontender. No: McBurney's point, Muhammad's sign, Guarding, Rebound Course - Re-evaluation Re-evalutation: 02/27/18 16:22 I have greeted and performed a rapid initial assessment of this patient. A comprehensive ED assessment and evaluation of the patient, analysis of test results and completion of the medical decision making process will be conducted by additional ED providers. - Vital Signs Vital signs: Temp Pulse Resp BP Pulse Ox 98.1 F 92 20 172/89 H 96 02/27/18 15:27 02/27/18 15:27 02/27/18 15:27 02/27/18 15:27 02/27/18 15:27
[2018-02-27 17:21] LABS: ABSOLUTE BASOPHILS # (AUTO) 0.1 10^3/uL (0.0-0.2); ABSOLUTE EOSINOPHILS # (AUTO) 0.1 10^3/uL (0.0-0.6); ABSOLUTE LYMPHOCYTES (AUTO) 3.4 10^3/uL (0.5-4.7); ABSOLUTE NEUT (AUTO) 3.6 10^3/uL (1.7-8.2); BASOPHILS % (AUTO) 0.7 % (0-2); EOSINOPHILS % (AUTO) 1.5 % (0-6); HEMATOCRIT 34.3 % (37.9-51.0); HEMOGLOBIN 10.9 g/dL (13.5-17.0); LYMPHOCYTES % (AUTO) 41.1 % (13-45); MEAN CORPUSCULAR HEMOGLOBIN 23.8 pg (27.0-33.4); MEAN CORPUSCULAR HGB CONC 31.9 g/dL (32.0-36.0); MEAN CORPUSCULAR VOLUME 75 fl (80-97); MONOCYTES % (AUTO) 12.9 % (3-13); PLATELET COUNT 212 10^3/uL (150-450); RED BLOOD COUNT 4.59 10^6/uL (4.35-5.55); RED CELL DISTRIBUTION WIDTH 15.8 % (11.5-14.0); SEGMENTED NEUTROPHILS % (AUTO) 43.8 % (42-78); TOTAL CELLS COUNTED % (AUTO) 100 %; WHITE BLOOD COUNT 8.2 10^3/uL (4.0-10.5)
[2018-02-27 17:33] LABS: ALANINE AMINOTRANSFERASE 21 U/L (21-72); ALBUMIN 4.2 g/dL (3.5-5.0); ALKALINE PHOSPHATASE 95 U/L (38-126); ANION GAP 10 (5-19); ASPARTATE AMINO TRANSFERASE 14 U/L (17-59); BILIRUBIN,DIRECT 0.1 mg/dL (0.0-0.4); BILIRUBIN,TOTAL 0.2 mg/dL (0.2-1.3); BLOOD UREA NITROGEN 17 mg/dL (7-20); CALCIUM 9.2 mg/dL (8.4-10.2); CARBON DIOXIDE 27 mmol/L (22-30); CHLORIDE 106 mmol/L (98-107); GLUCOSE 53 mg/dL (75-110); LIPASE 34.3 U/L (23-300); POTASSIUM 3.5 mmol/L (3.6-5.0); SODIUM 143.1 mmol/L (137-145); TOTAL PROTEIN 6.2 g/dL (6.3-8.2)
--- NOTE | 2018-02-27 17:48 | ER Document Report ---
ED General - General Chief Complaint: Nausea/Vomiting Stated Complaint: VOMITING, STOMACH PAIN Time Seen by Provider: 02/27/18 16:16 TRAVEL OUTSIDE OF THE [place] IN LAST 30 DAYS: No - HPI Notes: Note patient was initially seen by the physician in triage who placed orders. 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 By description, he is a history of chronic gastroparesis with intermittent bouts of vomiting and worsening, and multiple ED visits for the same. States for the last day or 2 days had increasing pain in his mid upper abdomen, sharp aching crampy, nonradiating. He has been "dry heaving" but not actually vomiting food or fluid. Multiple times per day. Normal bowel movements. This feels like previous exacerbations. No other modifying factors, no other associated symptoms, no other provocative or palliative factors. He is scheduled to have some type of evaluation surgery in [place] in the next couple of months for what sounds to be some type of pacer implantation. - Related Data Allergies/Adverse Reactions: celecoxib [From Celebrex] Allergy (Verified 02/27/18 15:21) ibuprofen [From Motrin] Allergy (Verified 02/27/18 15:21) Past Medical History - Social History Smoking Status: Never Smoker Frequency of alcohol use: None Drug Abuse: None Family History: Reviewed & Not Pertinent Patient has suicidal ideation: No Patient has homicidal ideation: No - Past Medical History Cardiac Medical History: Reports: Hx Congestive Heart Failure, Hx Hypertension Renal/ Medical History: Denies: Hx Peritoneal Dialysis GI Medical History: Reports: Hx Gastritis, Hx Hiatal Hernia Other: Gastroparesis Past Surgical History: Reports: Hx Abdominal Surgery - Fundoplication, Hx Appendectomy, Hx Bowel Surgery, Hx Orthopedic Surgery - L spine, Hx Tonsillectomy - Immunizations Hx Diphtheria, Pertussis, Tetanus Vaccination: Yes Review of Systems - Review of Systems Notes: Review of systems as in the history of present illness otherwise negative Physical Exam - Vital signs Vitals: Temp Pulse Resp BP Pulse Ox 98.1 F 92 20 172/89 H 96 02/27/18 15:27 02/27/18 15:27 02/27/18 15:27 02/27/18 15:27 02/27/18 15:27 - Notes Notes: General: Well developed . HEENT: Normocephalic, atraumatic. Pupils equal round reactive to light. No JVD. Chest: No trauma. Respiratory: Good air exchange, normal excursion. Cardiac: Regular rhythm. No murmurs or gallops. Abdomen: Soft, benign. Distended, normal bowel sounds. No guarding rigidity or rebound. On distracted examination he is really minimal epigastric tenderness. Back: No asymmetry or gross abnormality. Motor: Grossly normal power and tone. Neurologic: Alert, nonfocal. Cranial nerves II-12 are intact. Sensation intact. Vascular: Well perfused. Normal peripheral pulses. Skin: No petechiae or purpura. Course - Re-evaluation Re-evalutation: 02/27/18 17:48 Complicated 57-year-old male with the aforementioned symptoms. Suspect this is an exacerbation of his underlying gastroparesis, less likely bowel obstruction. Doubt perforation. Doubt abdominal ischemia or arterial insufficiency. Patient did already receive presented diphenhydramine with modest improvement. Labs are pending, x-rays are pending. Patient is tolerance to opiates and may benefit from utilization of haloperidol which would help treat both nausea as well as modulate perception of pain. 02/27/18 18:31 Labs reviewed, grossly unremarkable. On reassessment on several occasions, the patient has a benign abdomen with no significant tenderness on distracted exam. He does still complain of pain, however, I believe this is a chronic issue. Escalation opiates would not serve him well may adversely affect his gut motility. I have asked that he follow close with his primary care physician, return if worsening. Of note, acute abdominal series is unremarkable. - Vital Signs Vital signs: Temp Pulse Resp BP Pulse Ox 98.1 F 92 20 172/89 H 96 02/27/18 15:27 02/27/18 15:27 02/27/18 15:27 02/27/18 15:27 02/27/18 15:27 - Laboratory Result Diagrams: 02/27/18 16:55 02/27/18 16:55 Laboratory results interpreted by me: 02/27/18 02/27/18 16:55 16:55 Hgb 10.9 L Hct 34.3 L MCV 75 L MCH 23.8 L MCHC 31.9 L RDW 15.8 H Potassium 3.5 L Glucose 53 L AST 14 L Total Protein 6.2 L - Diagnostic Test Radiology reviewed: Reports reviewed - No acute abnormality Discharge - Discharge Clinical Impression: Abdominal pain Qualifiers: Abdominal location: upper abdomen, unspecified Qualified Code(s): R10.10 - Upper abdominal pain, unspecified Disposition: HOME, SELF-CARE Instructions: Abdominal Pain ([facility]) Additional Instructions: Contact your primary care doctor and the physician who manages your chronic pain and gastroparesis tomorrow Prescriptions: Ondansetron [Zofran Odt 4 mg Tablet] 1 - 2 tab PO Q4H PRN #15 tab.rapdis PRN Reason: For Nausea/Vomiting
--- NOTE | 2018-02-27 18:13 | RADIOLOGY REPORT (SQ) ---
EXAM DESCRIPTION: ACUTE ABDOMEN SERIES COMPLETED DATE/TIME: 02/27/2018 5:55 pm REASON FOR STUDY: nv COMPARISON: None. NUMBER OF VIEWS: Three views. TECHNIQUE: Frontal chest, supine abdomen and upright/decubitus abdomen radiographic images acquired. LIMITATIONS: None. FINDINGS: CHEST: Lungs clear of infiltrates. FREE AIR: None. No abnormal gas collections. BOWEL GAS PATTERN: Copious colonic gas in a nonspecific, non obstructed pattern. No dilated loops or air fluid levels. CALCIFICATIONS: No suspicious calcifications. HARDWARE: Surgical clips and chain sutures are seen in the epigastrium. SOFT TISSUES: No gross mass or suggestion of organomegaly. BONES: No acute fracture. No worrisome bone lesions. OTHER: No other significant finding. IMPRESSION: NO RADIOGRAPHIC EVIDENCE FOR ACUTE ABDOMINAL DISEASE. TECHNICAL DOCUMENTATION: JOB ID: [id number] [employer]- All Rights Reserved Reading location - IP/workstation name: [email or web address]
== END 2018-02-27 18:59 | disposition home or self-care (01) ==
LOC: ER 15:18
DX: K31.84 Gastroparesis (principal); R10.13 Epigastric pain; R14.0 Abdominal distension (gaseous); I10 Essential (primary) hypertension; Z87.19 Personal history of other diseases of the digestive system; Z98.890 Other specified postprocedural states; Z88.6 Allergy status to analgesic agent; Z90.49 Acquired absence of other specified parts of digestive tract
CPT/HCPCS: 99284; 96361; 96374; 96375; 36415; 83690; 85025; 80053; 74022; J1200; J0780; J7030

== ENCOUNTER 2018-03-01 22:58 | Emergency (ER) | payer BC, MEDICARE ==
[2018-03-02] MEDS ORDERED: MORPHINE SULFATE 10 MG/ML INJ IM ONE (00:44)
[2018-03-02] MEDS ORDERED: PROMETHAZINE HCL INJ 25 MG/1 ML VIAL IM ONE (00:44)
--- NOTE | 2018-03-02 00:52 | ER Document Report ---
ED General - General Chief Complaint: Abdominal Pain Stated Complaint: NAUSEA Time Seen by Provider: 03/02/18 00:33 Mode of Arrival: Ambulatory Information source: Patient, [facility] Records Notes: 57-year-old male with a history of hypertension, chronic back pain, Misti fundoplication, gastroparesis, complicated hernia repair surgery which patient states left him with nerve damage to his abdomen presents with complaint of nausea, dry heaving, abdominal pain. Patient states symptoms started 3 days prior to arrival. This is the patient's second visit this week for similar symptoms. He has had multiple visits over the last few months for similar symptoms. He states he does have an upcoming appointment in [facility] for "stimulator placement". He denies any fever, chills, chest pain, shortness of breath dysuria, hematuria. He has chronic back pain and diarrhea ( secondary to stool softeners that he takes daily). TRAVEL OUTSIDE OF THE [place] IN LAST 30 DAYS: No - HPI Onset: Yesterday - 3 Days prior to arrival Onset/Duration: Intermittent Quality of pain: Throbbing Severity: Mild Associated symptoms: Body/muscle aches, Diarrhea, Nausea. denies: Fever, Vomiting, Shortness of breath Exacerbated by: Denies Relieved by: Denies Similar symptoms previously: Yes Recently seen / treated by doctor: Yes - 02/27/18 - Related Data Allergies/Adverse Reactions: celecoxib [From Celebrex] Allergy (Verified 02/27/18 15:21) ibuprofen [From Motrin] Allergy (Verified 02/27/18 15:21) Past Medical History - General Information source: Patient - Social History Smoking Status: Unknown if Ever Smoked Frequency of alcohol use: None Drug Abuse: None Lives with: Spouse/Significant other Family History: Reviewed & Not Pertinent - Past Medical History Cardiac Medical History: Reports: Hx Congestive Heart Failure, Hx Hypertension Renal/ Medical History: Denies: Hx Peritoneal Dialysis GI Medical History: Reports: Hx Gastritis, Hx Hiatal Hernia Past Surgical History: Reports: Hx Abdominal Surgery - Fundoplication, Hx Appendectomy, Hx Bowel Surgery, Hx Orthopedic Surgery - L spine, Hx Tonsillectomy - Immunizations Hx Diphtheria, Pertussis, Tetanus Vaccination: Yes Review of Systems - Review of Systems Notes: He denies any fever, chills, chest pain, shortness of breath dysuria, hematuria. He has chronic abdominal, back pain and diarrhea (secondary to stool softeners that he takes daily). Physical Exam - Vital signs Vitals: Temp Pulse Resp BP Pulse Ox 98.1 F 71 20 151/92 H 97 03/01/18 23:26 03/01/18 23:26 03/01/18 23:26 03/01/18 23:26 03/01/18 23:26 Interpretation: Normal, Hypertensive - Notes Notes: PHYSICAL EXAMINATION: GENERAL: Comfortable-appearing, well-nourished and in no acute distress. HEAD: Atraumatic, normocephalic. EYES: Pupils equal round and reactive to light, extraocular movements intact, sclera anicteric, conjunctiva are normal. ENT: Nares patent, oropharynx clear without exudates. Moist mucous membranes. NECK: Normal range of motion, supple without lymphadenopathy LUNGS: Breath sounds clear to auscultation bilaterally and equal. No wheezes rales or rhonchi. HEART: Regular rate and rhythm without murmurs ABDOMEN: Soft, distended abdomen. Tender to palpation in the umbilical region. no guarding, no rebound. No masses or hernias appreciated. Musculoskeletal: Normal range of motion, no pitting or edema. No cyanosis. NEUROLOGICAL: Cranial nerves grossly intact. Normal speech, normal gait. Normal sensory, motor exams PSYCH: Normal mood, normal affect. SKIN: Warm, Dry, normal turgor, no rashes or lesions noted. - General General appearance: Appears well, Alert In distress: Mild - HEENT Head: Normocephalic, Atraumatic Eyes: Normal Pupils: PERRL Course - Re-evaluation Re-evalutation: Laboratory 03/02/18 03/02/18 03/02/18 01:05 01:05 01:05 WBC 7.6 RBC 4.51 Hgb 10.5 L Hct 34.1 L MCV 76 L MCH 23.4 L MCHC 30.9 L RDW 16.1 H Plt Count 202 Seg Neutrophils % 57.1 Lymphocytes % 27.7 Monocytes % 12.1 Eosinophils % 2.1 Basophils % 1.0 Absolute Neutrophils 4.3 Absolute Lymphocytes 2.1 Absolute Monocytes 0.9 Absolute Eosinophils 0.2 Absolute Basophils 0.1 Sodium 143.5 Potassium 3.9 Chloride 108 H Carbon Dioxide 27 Anion Gap 9 BUN 16 Creatinine 1.09 Est GFR ( Amer) > 60 Est GFR (Non-Af Amer) > 60 Glucose 89 Lactic Acid 0.9 Calcium 9.0 Total Bilirubin 0.2 Direct Bilirubin 0.2 Neonat Total Bilirubin Not Reportable Neonat Direct Bilirubin Not Reportable Neonat Indirect Bili Not Reportable AST 12 L ALT 20 L Alkaline Phosphatase 90 Total Protein 6.4 Albumin 4.0 Lipase 35.6 Urine Color Urine Appearance Urine pH Ur Specific [place] Urine Protein Urine Glucose (UA) Urine Ketones Urine Blood Urine Nitrite Urine Bilirubin Urine Urobilinogen Ur Leukocyte Esterase Urine WBC (Auto) Urine RBC (Auto) Calcium Oxalate Cr Auto Urine Mucus (Auto) Urine Ascorbic Acid 03/02/18 02:50 WBC RBC Hgb Hct MCV MCH MCHC RDW Plt Count Seg Neutrophils % Lymphocytes % Monocytes % Eosinophils % Basophils % Absolute Neutrophils Absolute Lymphocytes Absolute Monocytes Absolute Eosinophils Absolute Basophils Sodium Potassium Chloride Carbon Dioxide Anion Gap BUN Creatinine Est GFR ( Amer) Est GFR (Non-Af Amer) Glucose Lactic Acid Calcium Total Bilirubin Direct Bilirubin Neonat Total Bilirubin Neonat Direct Bilirubin Neonat Indirect Bili AST ALT Alkaline Phosphatase Total Protein Albumin Lipase Urine Color STRAW Urine Appearance CLEAR Urine pH 6.0 Ur Specific [place] 1.006 Urine Protein NEGATIVE Urine Glucose (UA) NEGATIVE Urine Ketones NEGATIVE Urine Blood NEGATIVE Urine Nitrite NEGATIVE Urine Bilirubin NEGATIVE Urine Urobilinogen NEGATIVE Ur Leukocyte Esterase NEGATIVE Urine WBC (Auto) 1 Urine RBC (Auto) 5 Calcium Oxalate Cr Auto RARE Urine Mucus (Auto) RARE Urine Ascorbic Acid NEGATIVE Acute Abdomen Series 03/02/18 00:44 IMPRESSION: 1. No objective bowel gas pattern. No acute pulmonary process. 03/02/18 19:30 57-year-old male with a history of hypertension, chronic back pain, Misti fundoplication, gastroparesis, complicated hernia repair surgery which patient states left him with nerve damage to his abdomen presents with complaint of nausea, dry heaving, abdominal pain. Patient states symptoms started 3 days prior to arrival. This is the patient's second visit this week for similar symptoms. He has had multiple visits over the last few months for similar symptoms. VSS. Previous medical records and imaging reviewed. He states he does have an upcoming appointment in [facility] for "stimulator placement". Patient received IM fentanyl, morphine and phenergan during his ED course. Acute abdominal series without evidence of obstruction. CBC without luekocytosis, CMP without electrolyte abnormalities UA without evidence of infection. Patient has appropriate f/u and scheduled surgery. On re-evaluation patient reported some improvement of pain but not complete resolution. I explained that I would not likely be able to cure him from his chronic pain. He is tolerating fluids prior to discharge. Patient has percocet at home as well as antiemetics. - Vital Signs Vital signs: Temp Pulse Resp BP Pulse Ox 97.9 F 58 L 16 156/73 H 98 03/02/18 04:08 03/02/18 04:08 03/02/18 04:08 03/02/18 04:08 03/02/18 04:08 - Laboratory Result Diagrams: 03/02/18 01:05 03/02/18 01:05 Laboratory results interpreted by me: 03/02/18 03/02/18 01:05 01:05 Hgb 10.5 L Hct 34.1 L MCV 76 L MCH 23.4 L MCHC 30.9 L RDW 16.1 H Chloride 108 H AST 12 L ALT 20 L - Diagnostic Test Radiology reviewed: Image reviewed, Reports reviewed Discharge - Discharge Clinical Impression: Chronic abdominal pain Condition: Good Disposition: HOME, SELF-CARE Instructions: Abdominal Pain ([facility]) Referrals: ROSEMARY GODOY MD [Primary Care Provider] - Follow up as needed
[2018-03-02 01:24] LABS: ABSOLUTE BASOPHILS # (AUTO) 0.1 10^3/uL (0.0-0.2); ABSOLUTE EOSINOPHILS # (AUTO) 0.2 10^3/uL (0.0-0.6); ABSOLUTE LYMPHOCYTES (AUTO) 2.1 10^3/uL (0.5-4.7); ABSOLUTE MONOCYTES (AUTO) 0.9 10^3/uL (0.1-1.4); ABSOLUTE NEUT (AUTO) 4.3 10^3/uL (1.7-8.2); EOSINOPHILS % (AUTO) 2.1 % (0-6); HEMATOCRIT 34.1 % (37.9-51.0); HEMOGLOBIN 10.5 g/dL (13.5-17.0); LYMPHOCYTES % (AUTO) 27.7 % (13-45); MEAN CORPUSCULAR HEMOGLOBIN 23.4 pg (27.0-33.4); MEAN CORPUSCULAR HGB CONC 30.9 g/dL (32.0-36.0); MEAN CORPUSCULAR VOLUME 76 fl (80-97); MONOCYTES % (AUTO) 12.1 % (3-13); PLATELET COUNT 202 10^3/uL (150-450); RED BLOOD COUNT 4.51 10^6/uL (4.35-5.55); RED CELL DISTRIBUTION WIDTH 16.1 % (11.5-14.0); SEGMENTED NEUTROPHILS % (AUTO) 57.1 % (42-78); TOTAL CELLS COUNTED % (AUTO) 100 %; WHITE BLOOD COUNT 7.6 10^3/uL (4.0-10.5)
[2018-03-02 01:34] LABS: ALANINE AMINOTRANSFERASE 20 U/L (21-72); ALKALINE PHOSPHATASE 90 U/L (38-126); ANION GAP 9 (5-19); ASPARTATE AMINO TRANSFERASE 12 U/L (17-59); BILIRUBIN,DIRECT 0.2 mg/dL (0.0-0.4); BILIRUBIN,TOTAL 0.2 mg/dL (0.2-1.3); BLOOD UREA NITROGEN 16 mg/dL (7-20); CARBON DIOXIDE 27 mmol/L (22-30); CHLORIDE 108 mmol/L (98-107); GLUCOSE 89 mg/dL (75-110); LIPASE 35.6 U/L (23-300); POTASSIUM 3.9 mmol/L (3.6-5.0); SODIUM 143.5 mmol/L (137-145); TOTAL PROTEIN 6.4 g/dL (6.3-8.2)
--- NOTE | 2018-03-02 02:05 | RADIOLOGY REPORT (SQ) ---
EXAM DESCRIPTION: ACUTE ABDOMEN SERIES CLINICAL HISTORY: abdominal pain COMPARISON: None. FINDINGS: Single view of the chest with upright spine views of the abdomen. Cardiomediastinal silhouette has normal size and contour. No consolidation, pneumothorax, or pleural effusion. Bowel: No dilated loops of large or small bowel. Peritoneum: No free intraperitoneal air identified. Solid organs: No definite organomegaly. Calcifications: No abnormal calcifications. Bones: No acute osseous abnormalities. Other: Postoperative change in the epigastric region. IMPRESSION: 1. No objective bowel gas pattern. No acute pulmonary process.
[2018-03-02] MEDS ORDERED: FENTANYL CITRATE INJ/PF 100 MCG/2 ML AMPUL IM ONE (03:17)
[2018-03-02 03:24] LABS: APPEARANCE,URINE CLEAR; BILIRUBIN,URINE NEGATIVE (NEGATIVE); CALCIUM OXALATE CRYSTALS,URINE RARE /HPF; COLOR,URINE STRAW; GLUCOSE, URINE NEGATIVE (NEGATIVE); KETONES,URINE NEGATIVE (NEGATIVE); LEUKOCYTE ESTERASE,URINE NEGATIVE (NEGATIVE); NITRITE,URINE NEGATIVE (NEGATIVE); PROTEIN,URINE NEGATIVE (NEGATIVE); URINE SPECIFIC GRAVITY 1.006; UROBILINOGEN,URINE NEGATIVE mg/dL (<2.0)
[2018-03-02 04:10] VITALS: BP 156/73
== END 2018-03-02 04:08 | disposition home or self-care (01) ==
LOC: ER 22:58
DX: G89.29 Other chronic pain (principal); R10.9 Unspecified abdominal pain; R11.0 Nausea; M54.9 Dorsalgia, unspecified; M79.1 Myalgia; R19.7 Diarrhea, unspecified; I50.9 Heart failure, unspecified; I11.0 Hypertensive heart disease with heart failure; Z88.6 Allergy status to analgesic agent
CPT/HCPCS: 99284; 96372; 36415; 83690; 85025; 80053; 81001; 83605; 74022; J3010; J2270; J2550

== ENCOUNTER 2018-03-06 12:35 | Emergency (ER) | payer BC, MEDICARE ==
[2018-03-06] MEDS ORDERED: ONDANSETRON HCL INJ/PF 4 MG/2 ML SDV IV ONE (13:16)
[2018-03-06] MEDS ORDERED: NORMAL SALINE 1000 ML 1,000 ML IV ONE (13:16)
[2018-03-06] MEDS ORDERED: MORPHINE SULFATE 10 MG/ML INJ IV ONE ×2 (13:17→15:52)
--- NOTE | 2018-03-06 13:19 | ER Document Report ---
ED Medical Screen (RME) - General Chief Complaint: Abdominal Pain Stated Complaint: ABDOMINAL PAIN Time Seen by Provider: 03/06/18 13:16 Notes: Patient states he had surgery for a hiatal hernia. He states since that surgery he has had persistent problems with abdominal pain and dry heaves. He has had 2 subsequent surgeries which is not relieved the symptoms. He is scheduled for surgery again next week in [facility]. He presents today with severe pain and dry heaves. TRAVEL OUTSIDE OF THE [place] IN LAST 30 DAYS: No - Related Data Allergies/Adverse Reactions: celecoxib [From Celebrex] Allergy (Verified 02/27/18 15:21) ibuprofen [From Motrin] Allergy (Verified 02/27/18 15:21) Past Medical History - Social History Chew tobacco use (# tins/day): No Frequency of alcohol use: None Drug Abuse: None - Past Medical History Cardiac Medical History: Reports: Hx Congestive Heart Failure, Hx Hypertension Renal/ Medical History: Denies: Hx Peritoneal Dialysis GI Medical History: Reports: Hx Gastritis, Hx Hiatal Hernia Past Surgical History: Reports: Hx Abdominal Surgery - Fundoplication, Hx Appendectomy, Hx Bowel Surgery, Hx Orthopedic Surgery - L spine, Hx Tonsillectomy - Immunizations Hx Diphtheria, Pertussis, Tetanus Vaccination: Yes History of Influenza Vaccine for 08/2017 - 01/2018 Season: No Physical Exam - Vital signs Vitals: Temp Pulse Resp BP Pulse Ox 98.0 F 94 16 185/81 H 97 03/06/18 12:51 03/06/18 12:51 03/06/18 12:51 03/06/18 12:51 03/06/18 12:51 Course - Vital Signs Vital signs: Temp Pulse Resp BP Pulse Ox 98.0 F 94 16 185/81 H 97 03/06/18 12:51 03/06/18 12:51 03/06/18 12:51 03/06/18 12:51 03/06/18 12:51
[2018-03-06 14:03] LABS: ABSOLUTE BASOPHILS # (AUTO) 0.1 10^3/uL (0.0-0.2); ABSOLUTE EOSINOPHILS # (AUTO) 0.1 10^3/uL (0.0-0.6); ABSOLUTE LYMPHOCYTES (AUTO) 1.3 10^3/uL (0.5-4.7); ABSOLUTE MONOCYTES (AUTO) 0.6 10^3/uL (0.1-1.4); ABSOLUTE NEUT (AUTO) 3.8 10^3/uL (1.7-8.2); EOSINOPHILS % (AUTO) 1.7 % (0-6); HEMATOCRIT 37.3 % (37.9-51.0); HEMOGLOBIN 11.7 g/dL (13.5-17.0); MEAN CORPUSCULAR HEMOGLOBIN 23.3 pg (27.0-33.4); MEAN CORPUSCULAR HGB CONC 31.3 g/dL (32.0-36.0); MEAN CORPUSCULAR VOLUME 74 fl (80-97); MONOCYTES % (AUTO) 9.8 % (3-13); PLATELET COUNT 247 10^3/uL (150-450); RED BLOOD COUNT 5.02 10^6/uL (4.35-5.55); SEGMENTED NEUTROPHILS % (AUTO) 64.5 % (42-78); TOTAL CELLS COUNTED % (AUTO) 100 %; WHITE BLOOD COUNT 5.8 10^3/uL (4.0-10.5)
[2018-03-06 14:18] LABS: ALANINE AMINOTRANSFERASE 17 U/L (21-72); ALBUMIN 4.4 g/dL (3.5-5.0); ALKALINE PHOSPHATASE 99 U/L (38-126); ANION GAP 12 (5-19); ASPARTATE AMINO TRANSFERASE 15 U/L (17-59); BILIRUBIN,DIRECT 0.3 mg/dL (0.0-0.4); BILIRUBIN,TOTAL 0.3 mg/dL (0.2-1.3); BLOOD UREA NITROGEN 20 mg/dL (7-20); CALCIUM 9.6 mg/dL (8.4-10.2); CARBON DIOXIDE 24 mmol/L (22-30); CHLORIDE 108 mmol/L (98-107); GLUCOSE 144 mg/dL (75-110); LIPASE 38.7 U/L (23-300); POTASSIUM 3.8 mmol/L (3.6-5.0); SODIUM 143.8 mmol/L (137-145)
[2018-03-06] MEDS ORDERED: CLONIDINE HCL 0.1 MG TABLET PO ONE (14:26)
--- NOTE | 2018-03-06 15:25 | RADIOLOGY REPORT (SQ) ---
EXAM DESCRIPTION: ACUTE ABDOMEN SERIES COMPLETED DATE/TIME: 03/06/2018 2:38 pm REASON FOR STUDY: abd pain, +nausea COMPARISON: 03/02/2018. NUMBER OF VIEWS: Three views. TECHNIQUE: Frontal chest, supine abdomen and upright/decubitus abdomen radiographic images acquired. LIMITATIONS: None. FINDINGS: CHEST: Lungs clear of infiltrates. FREE AIR: None. No abnormal gas collections. BOWEL GAS PATTERN: Gas throughout the stool, relatively nondistended. Mild air-fluid levels in the r ight colon. Mild stool. Relatively nonobstructive pattern. CALCIFICATIONS: Known left nephrolithiasis. HARDWARE: None in the abdomen. SOFT TISSUES: No gross mass or suggestion of organomegaly. BONES: No acute fracture. No worrisome bone lesions. OTHER: No other significant finding. IMPRESSION: Suspect mild colonic ileus. Known left nephrolithiasis. TECHNICAL DOCUMENTATION: JOB ID: [id number] [employer]- All Rights Reserved Reading location - IP/workstation name: [email or web address]
--- NOTE | 2018-03-06 16:14 | ER Document Report ---
ED GI/ - General Chief Complaint: Abdominal Pain Stated Complaint: ABDOMINAL PAIN Time Seen by Provider: 03/06/18 13:16 Mode of Arrival: Ambulatory Information source: Patient Notes: Patient presents reporting a one-year history of chronic abdominal pain with nausea and dry heaves due to complications from a Misti fundoplication. Patient states that he is due to have surgery next week to have a gastric stimulator inserted. Patient states that he has had nausea and has not taken his usual blood pressure medication today. Pt was seen in triage and given an anti-medic pain medication which has helped his symptoms. Patient denies any blood in stool TRAVEL OUTSIDE OF THE [place] IN LAST 30 DAYS: No - HPI Patient complains to provider of: Abdominal pain, Other - nausea Onset: Other - chronic, worse x 5 days Timing/Duration: Worse Quality of pain: Achy Pain Level: 3 Location: Other - umbilical, r middle quadrant Associated symptoms: Nausea. denies: Chest pain, Diarrhea Exacerbated by: Denies Relieved by: Denies Similar symptoms previously: Yes Recently seen / treated by doctor: Yes - Related Data Allergies/Adverse Reactions: celecoxib [From Celebrex] Allergy (Verified 02/27/18 15:21) ibuprofen [From Motrin] Allergy (Verified 02/27/18 15:21) Past Medical History - General Information source: Patient - Social History Smoking Status: Never Smoker Chew tobacco use (# tins/day): No Frequency of alcohol use: None Drug Abuse: None Lives with: Spouse/Significant other Family History: Reviewed & Not Pertinent Patient has suicidal ideation: No Patient has homicidal ideation: No - Past Medical History Cardiac Medical History: Reports: Hx Congestive Heart Failure, Hx Hypertension Renal/ Medical History: Denies: Hx Peritoneal Dialysis GI Medical History: Reports: Hx Gastritis, Hx Hiatal Hernia Past Surgical History: Reports: Hx Abdominal Surgery - Fundoplication, Hx Appendectomy, Hx Bowel Surgery, Hx Orthopedic Surgery - L spine, Hx Tonsillectomy - Immunizations Hx Diphtheria, Pertussis, Tetanus Vaccination: Yes Review of Systems - Review of Systems Constitutional: No symptoms reported. denies: Fever, Recent illness EENT: No symptoms reported Cardiovascular: No symptoms reported Respiratory: No symptoms reported. denies: Cough Gastrointestinal: Abdominal pain, Nausea. denies: Vomiting Genitourinary: No symptoms reported. denies: Dysuria, Flank pain Male Genitourinary: No symptoms reported Musculoskeletal: Back pain - chronic low back Skin: Rash - to face and neck, pt attributes rash to recently shaving Hematologic/Lymphatic: No symptoms reported Neurological/Psychological: No symptoms reported. denies: Headaches Physical Exam - Vital signs Vitals: Temp Pulse Resp BP Pulse Ox 98.0 F 94 16 185/81 H 97 03/06/18 12:51 03/06/18 12:51 03/06/18 12:51 03/06/18 12:51 03/06/18 12:51 - General General appearance: Appears well, Alert In distress: None - HEENT Head: Normocephalic, Atraumatic Eyes: Normal Nasal: Normal Mouth/Lips: Normal Mucous membranes: Normal Neck: Normal, Supple. No: Lymphadenopathy - Respiratory Respiratory status: No respiratory distress Chest status: Nontender Breath sounds: Normal. No: Rales, Rhonchi, Stridor, Wheezing Chest palpation: Normal - Cardiovascular Rhythm: Regular Heart sounds: S1 appreciated, S2 appreciated Murmur: No - Abdominal Inspection: Other - multiple scars to abd Distension: No distension Tenderness: Tender - right middle quadrant, periumbilical tenderness Organomegaly: No organomegaly - Back Back: Tender - lower lumbar paraspinal tenderness. No: CVA tenderness - Extremities General upper extremity: Normal inspection, Normal strength General lower extremity: Normal inspection, Normal strength - Neurological Neuro grossly intact: Yes Cognition: Normal Jones Coma Scale Eye Opening: Spontaneous [place] Coma Scale Verbal: Oriented [place] Coma Scale Motor: Obeys Commands Jones Coma Scale Total: 15 - Psychological Associated symptoms: Normal affect, Normal mood - Skin Skin Temperature: Warm Location of irregularity: Face, Neck Character of irregularity: Patchy, Erythematous Irregularity with: negative: Swelling, Tenderness Course - Re-evaluation Re-evalutation: 03/06/18 16:15 pt continues with umbilical and right middle quadrant abdominal tenderness. Consulted with Dr. Valdes regarding patient presentation, recommends consultation with surgeon. Dr. Choudhary consulted, Dr choudhary to review pt's imaging. 03/06/18 16:32 dr Choudhary to bedside for exam 03/06/18 16:59 Dr. Choudhary does not feel that patient has a surgical abdomen and does not recommend any additional testing at this time. Encourages outpatient follow-up with a surgeon as planned. 03/06/18 17:02 Patient blood pressure continues elevated, patient states that typically he takes his home blood pressure medication evening dose at 5 PM. Patient will be given his dose here. Patient states that his nausea is improved and that he can manage his pain symptoms. Patient plans to follow-up with his surgeon. Patient given good return precautions. Patient presents with abdominal pain without signs of peritonitis or other life-threatening or serious etiology. Patient appears stable for discharge and has been instructed to return immediately if the symptoms worsen in any way, or in 8-12 hours if not improved for reevaluation. The patient has been instructed to return if the symptoms worsen or change in any way. - Vital Signs Vital signs: Temp Pulse Resp BP Pulse Ox 98.3 F 66 16 164/96 H 98 03/06/18 17:16 03/06/18 17:16 03/06/18 12:51 03/06/18 17:16 03/06/18 17:16 - Laboratory Result Diagrams: 03/06/18 13:32 03/06/18 13:32 Laboratory results interpreted by me: 03/06/18 03/06/18 13:32 13:32 Hgb 11.7 L Hct 37.3 L MCV 74 L MCH 23.3 L MCHC 31.3 L RDW 16.0 H Chloride 108 H Glucose 144 H AST 15 L ALT 17 L 03/06/18 17:03 Labs- Entire Visit 03/06/18 03/06/18 03/06/18 13:32 13:32 16:15 WBC 5.8 RBC 5.02 Hgb 11.7 L Hct 37.3 L MCV 74 L MCH 23.3 L MCHC 31.3 L RDW 16.0 H Plt Count 247 Seg Neutrophils % 64.5 Lymphocytes % 23.0 Monocytes % 9.8 Eosinophils % 1.7 Basophils % 1.0 Absolute Neutrophils 3.8 Absolute Lymphocytes 1.3 Absolute Monocytes 0.6 Absolute Eosinophils 0.1 Absolute Basophils 0.1 Sodium 143.8 Potassium 3.8 Chloride 108 H Carbon Dioxide 24 Anion Gap 12 BUN 20 Creatinine 1.08 Est GFR ( Amer) > 60 Est GFR (Non-Af Amer) > 60 Glucose 144 H Calcium 9.6 Total Bilirubin 0.3 Direct Bilirubin 0.3 Neonat Total Bilirubin Not Reportable Neonat Direct Bilirubin Not Reportable Neonat Indirect Bili Not Reportable AST 15 L ALT 17 L Alkaline Phosphatase 99 Total Protein 7.0 Albumin 4.4 Lipase 38.7 Urine Color YELLOW Urine Appearance CLEAR Urine pH 6.0 Ur Specific [place] 1.019 Urine Protein NEGATIVE Urine Glucose (UA) NEGATIVE Urine Ketones NEGATIVE Urine Blood NEGATIVE Urine Nitrite NEGATIVE Urine Bilirubin NEGATIVE Urine Urobilinogen NEGATIVE Ur Leukocyte Esterase NEGATIVE Urine WBC (Auto) 1 Urine RBC (Auto) 2 U Hyaline Cast (Auto) 10 Squamous Epi Cells Auto <1 Urine Mucus (Auto) FEW Urine Ascorbic Acid NEGATIVE - Diagnostic Test Radiology reviewed: Image reviewed, Reports reviewed Discharge - Discharge Clinical Impression: Chronic abdominal pain, Nausea, Hx of essential hypertension Condition: Stable Disposition: HOME, SELF-CARE Instructions: Abdominal Pain ([facility]), Nausea or Vomiting, Nonspecific ([facility]) Additional Instructions: Return immediately for any new or worsening symptoms Followup with your primary care provider, call tomorrow to make a followup appointment Follow-up with your surgeon as planned for recheck. Forms: Elevated Blood Pressure Referrals: LALI PLASCENCIA MD [Primary Care Provider] - Follow up tomorrow
[2018-03-06 16:43] LABS: APPEARANCE,URINE CLEAR; BILIRUBIN,URINE NEGATIVE (NEGATIVE); COLOR,URINE YELLOW; GLUCOSE, URINE NEGATIVE (NEGATIVE); KETONES,URINE NEGATIVE (NEGATIVE); LEUKOCYTE ESTERASE,URINE NEGATIVE (NEGATIVE); NITRITE,URINE NEGATIVE (NEGATIVE); PROTEIN,URINE NEGATIVE (NEGATIVE); URINE SPECIFIC GRAVITY 1.019; UROBILINOGEN,URINE NEGATIVE mg/dL (<2.0)
--- NOTE | 2018-03-06 16:57 | PDOC CONSULTATION ---
Consultation Consult Date: 03/06/18 Attending physician:: SYLVIA MCCARTY Consult reason:: Abdominal pain nausea and vomiting History of Present Illness Admission Date/PCP: LALI PLASCENCIA MD History of Present Illness: GLORIA GOODRICH is a 57 year old male Presents to the emergency department via ground rescue complaining of unrelenting abdominal pain nausea and vomiting retching. Patient has a long history of these symptoms, with multiple visits to the emergency department over the last week and several over the last 2 months. He is one half years status post Misti fundoplication by Dr. Nimisha Cao, with revision surgery performed at [facility] including vagotomy, and pyloroplasty. The patient has subsequently been to multiple specialists and multiple states. Is now set up to undergo additional gastric revision surgery and gastric nerve stimulator implantation by Dr. Salvador RAO Hardwick. She was seen in the emergency department where he received Phenergan. Laboratory profile unremarkable. Acute abdominal series shows gas in the colon , insignificantly changed from previous x-rays the last week. States he has 4 bowel movements a day and does not strain however his colon has significant amount of gas and stool. Surgery was consulted for advice. Past Medical History Medical History: None - Obesity, hypercholesterolemia; chronic pain syndrome Cardiac Medical History: Reports: Congestive Heart Failure, Hypertension GI Medical History: Reports: Hiatal Hernia Past Surgical History Past Surgical History: Reports: Appendectomy, Orthopedic Surgery - L spine, Tonsillectomy, Other - Misti fundoplication, vagotomy and pyloroplasty, Social History Smoking Status: Never Smoker Hx Recreational Drug Use: No Hx Prescription Drug Abuse: No Family History Family History: Reviewed & Not Pertinent Parental Family History Reviewed: Yes Children Family History Reviewed: Yes Sibling(s) Family History Reviewed.: Yes Medication/Allergy Home Medications: Cyclobenzaprine HCl [Flexeril 10 Mg Tablet] 10 mg PO TIDP PRN #20 tablet Promethazine HCl [Promethegan] 50 mg RC Q6 #14 supp.rect 09/04/17 Oxycodone HCl/Acetaminophen [Percocet 10-325 Mg Tablet] 1 each PO Q6 PRN Scopolamine 1 each TD ASDIR PRN 12/10/17 Ondansetron [Zofran Odt 4 mg Tablet] 1 - 2 tab PO Q4H PRN #15 tab.rapdis Allergies/Adverse Reactions: celecoxib [From Celebrex] Allergy (Verified 02/27/18 15:21) ibuprofen [From Motrin] Allergy (Verified 02/27/18 15:21) Review of Systems Constitutional: ABSENT: chills, fever(s), headache(s), weight gain, weight loss Eyes: ABSENT: visual disturbances Ears: ABSENT: hearing changes Cardiovascular: ABSENT: chest pain, dyspnea on exertion, edema, orthropnea, palpitations Gastrointestinal: ABSENT: abdominal pain, constipation, diarrhea, hematemesis, hematochezia, nausea, vomiting Integumentary: PRESENT: other Physical Exam Vital Signs: Temp Pulse Resp BP Pulse Ox 98.0 F 94 16 185/81 H 97 03/06/18 12:51 03/06/18 12:51 03/06/18 12:51 03/06/18 12:51 03/06/18 12:51 Intake & Output 03/05/18 03/06/18 03/07/18 06:59 06:59 06:59 Weight 97.4 kg General appearance: PRESENT: mild distress Head exam: PRESENT: normocephalic Mouth exam: PRESENT: dry mucosa Neck exam: PRESENT: full ROM Respiratory exam: PRESENT: clear to auscultation marcelle Cardiovascular exam: PRESENT: RRR Pulses: PRESENT: normal carotid pulses, normal radial pulses GI/Abdominal exam: PRESENT: other - Possible scar; no hernias; no peritoneal signs no rigidity no organomegaly Rectal exam: PRESENT: deferred Musculoskeletal exam: PRESENT: full ROM, other - Mild dependent edema Results Laboratory Results: 03/06/18 13:32 03/06/18 13:32 03/06/18 03/06/18 03/06/18 13:32 13:32 16:15 WBC 5.8 RBC 5.02 Hgb 11.7 L Hct 37.3 L MCV 74 L MCH 23.3 L MCHC 31.3 L RDW 16.0 H Plt Count 247 Seg Neutrophils % 64.5 Lymphocytes % 23.0 Monocytes % 9.8 Eosinophils % 1.7 Basophils % 1.0 Absolute Neutrophils 3.8 Absolute Lymphocytes 1.3 Absolute Monocytes 0.6 Absolute Eosinophils 0.1 Absolute Basophils 0.1 Sodium 143.8 Potassium 3.8 Chloride 108 H Carbon Dioxide 24 Anion Gap 12 BUN 20 Creatinine 1.08 Est GFR ( Amer) > 60 Est GFR (Non-Af Amer) > 60 Glucose 144 H Calcium 9.6 Total Bilirubin 0.3 AST 15 L ALT 17 L Alkaline Phosphatase 99 Total Protein 7.0 Albumin 4.4 Lipase 38.7 Urine Color YELLOW Urine Appearance CLEAR Urine pH 6.0 Ur Specific [place] 1.019 Urine Protein NEGATIVE Urine Glucose (UA) NEGATIVE Urine Ketones NEGATIVE Urine Blood NEGATIVE Urine Nitrite NEGATIVE Ur Leukocyte Esterase NEGATIVE Urine WBC (Auto) 1 Urine RBC (Auto) 2 Impressions: Acute Abdomen Series 03/06/18 14:25 IMPRESSION: Suspect mild colonic ileus. Known left nephrolithiasis. Assessment & Plan - Diagnosis (1) Abdominal pain Plan: ,, Associated with nausea vomiting and retching. Patient has lost around 20 pounds in the last 2 years. Multiple surgeries and now about to undergo a additional operation for revision of his Misti fundoplication. At this time there is no evidence of an acute abdomen, no indication for surgical intervention. Her graft Recommendations: 1. Suggest supportive therapy including IV fluids. Patient may benefit from a cathartic. Her graft 2. I suggested patient follow up with Dr. Salvador Sultana, [facility] next week as previously scheduled. 3. Is reconsult surgery if needed - Time Time Spent: 50 to 70 Minutes Smoking Cessation Education: over 10 minutes
[2018-03-06] MEDS ORDERED: METOPROLOL TARTRATE 50 MG TABLET PO ONE (17:02)
[2018-03-06 17:26] VITALS: BP 164/96
== END 2018-03-06 17:23 | disposition home or self-care (01) ==
LOC: ER 12:35
DX: R10.33 Periumbilical pain (principal); G89.29 Other chronic pain; R11.0 Nausea; I10 Essential (primary) hypertension; Z79.899 Other long term (current) drug therapy
CPT/HCPCS: 96376; 99406; 99285; 96361; 96374; 96375; 36415; 83690; 85025; 80053; 81001; 74022; J2270; J2405; J7030

== ENCOUNTER 2018-03-09 22:09 | Emergency (ER) | payer BC, MEDICARE ==
[2018-03-09 22:16] VITALS: BP 140/72
[2018-03-10] MEDS ORDERED: NORMAL SALINE 1000 ML 1,000 ML IV ONE (00:33)
[2018-03-10] MEDS ORDERED: PROMETHAZINE HCL 25 MG TABLET PO ONE (00:33)
--- NOTE | 2018-03-10 00:34 | ER Document Report ---
ED GI/ - General Chief Complaint: Nausea/Vomiting Stated Complaint: VOMITING Time Seen by Provider: 03/10/18 00:18 Mode of Arrival: Ambulatory Information source: Patient TRAVEL OUTSIDE OF THE [place] IN LAST 30 DAYS: No - HPI Patient complains to provider of: Abdominal pain, Vomiting Timing/Duration: Persistent Quality of pain: Achy Severity at maximum: Moderate Severity in ED: Moderate Pain Level: 3 Location: Epigastric Associated symptoms: Nausea, Vomiting Exacerbated by: Denies Relieved by: Denies Similar symptoms previously: Yes Recently seen / treated by doctor: Yes Notes: 03/10/18 02:35 Patient is a 57-year-old male with a history of epigastric abdominal pain 14 months associated with nausea and vomiting, states he had a Misti fundoplication and they "cut the nerves" during the surgery causing him to have cyclic vomiting and chronic epigastric abdominal pain, this is his fourth visit to this emergency room this month and his seventh visit to this emergency room this year, he is scheduled to have surgery in [place] on Tuesday of this coming week to have a nerve stimulator placed which will hopefully and his chronic abdominal pain, he takes multiple medications at home including Percocet 10 mg and states he has 5 different nausea and vomiting medications to take at home which are not helping - Related Data Allergies/Adverse Reactions: celecoxib [From Celebrex] Allergy (Verified 02/27/18 15:21) ibuprofen [From Motrin] Allergy (Verified 02/27/18 15:21) Past Medical History - General Information source: Patient - Social History Smoking Status: Unknown if Ever Smoked Family History: Reviewed & Not Pertinent - Past Medical History Cardiac Medical History: Reports: Hx Congestive Heart Failure, Hx Hypertension Renal/ Medical History: Denies: Hx Peritoneal Dialysis GI Medical History: Reports: Hx Gastritis, Hx Hiatal Hernia Past Surgical History: Reports: Hx Abdominal Surgery - Fundoplication, Hx Appendectomy, Hx Bowel Surgery, Hx Orthopedic Surgery - L spine, Hx Tonsillectomy, Other - Misti fundoplication, vagotomy and pyloroplasty, - Immunizations Hx Diphtheria, Pertussis, Tetanus Vaccination: Yes Review of Systems - Review of Systems Constitutional: No symptoms reported EENT: No symptoms reported Cardiovascular: No symptoms reported Respiratory: No symptoms reported Gastrointestinal: See HPI Genitourinary: No symptoms reported Male Genitourinary: No symptoms reported Musculoskeletal: No symptoms reported Skin: No symptoms reported Hematologic/Lymphatic: No symptoms reported Neurological/Psychological: No symptoms reported -: Yes All other systems reviewed and negative Physical Exam - Vital signs Vitals: Temp Pulse Resp BP Pulse Ox 97.8 F 72 18 140/72 H 96 03/09/18 22:14 03/09/18 22:14 03/09/18 22:14 03/09/18 22:14 03/09/18 22:14 Interpretation: Normal - General General appearance: Appears well, Alert - HEENT Head: Normocephalic, Atraumatic Eyes: Normal Pupils: PERRL - Respiratory Respiratory status: No respiratory distress Chest status: Nontender Breath sounds: Normal Chest palpation: Normal - Cardiovascular Rhythm: Regular Heart sounds: Normal auscultation Murmur: No - Abdominal Inspection: Normal Distension: No distension Bowel sounds: Normal Tenderness: Tender Organomegaly: No organomegaly - Back Back: Normal, Nontender - Extremities General upper extremity: Normal inspection, Nontender, Normal color, Normal ROM , Normal temperature General lower extremity: Normal inspection, Nontender, Normal color, Normal ROM , Normal temperature, Normal weight bearing. No: Louisa's sign - Neurological Neuro grossly intact: Yes Cognition: Normal Orientation: AAOx4 Jones Coma Scale Eye Opening: Spontaneous [place] Coma Scale Verbal: Oriented [place] Coma Scale Motor: Obeys Commands [place] Coma Scale Total: 15 Speech: Normal Motor strength normal: LUE, RUE, LLE, RLE Sensory: Normal - Psychological Associated symptoms: Normal affect, Normal mood - Skin Skin Temperature: Warm Skin Moisture: Dry Skin Color: Normal Course - Re-evaluation Re-evalutation: 03/10/18 02:37 Patient presenting to the emergency room with chronic abdominal pain that has been going on for at least 14 months, he has been seen in this emergency room multiple times for this complaints, and reports that he has a surgery scheduled for Tuesday of the upcoming week in [place] to have a nerve stimulator placed in an effort to end his abdominal pain, he has multiple medications at home for control of his symptoms including 5 different nausea meds and Percocet 10 mg, but states this is not controlling his symptoms at home, his vital signs are stable, laboratory findings are stable, physical exam findings are unremarkable except for some epigastric tenderness on palpation, patient was advised during my initial evaluation that I would not be providing him with any narcotic pain medication today as I did not believe that this was warranted given his symptoms are chronic in nature and narcotic pain medications will likely worsen his abdominal symptoms by causing constipation, his evaluation here also does not warrant any emergent treatment as his symptoms have been going on for at least 14 months and are chronic in nature, therefore patient was discharged home with instructions for follow-up and advised to return if any worsening of his condition, patient acknowledges understanding and agreement with this plan - Vital Signs Vital signs: Temp Pulse Resp BP Pulse Ox 97.8 F 72 18 140/72 H 96 03/09/18 22:14 03/09/18 22:14 03/09/18 22:14 03/09/18 22:14 03/09/18 22:14 - Laboratory Result Diagrams: 03/10/18 01:20 03/10/18 01:20 Laboratory results interpreted by me: 03/10/18 03/10/18 01:20 01:20 Hgb 10.6 L Hct 33.7 L MCV 75 L MCH 23.5 L MCHC 31.5 L RDW 16.1 H BUN 23 H AST 16 L ALT 20 L Discharge - Discharge Clinical Impression: Chronic abdominal pain Nausea & vomiting Qualifiers: Vomiting type: unspecified Vomiting Intractability: intractable Qualified Code( s): R11.2 - Nausea with vomiting, unspecified Condition: Stable Disposition: HOME, SELF-CARE Instructions: Abdominal Pain ([facility]), Vomiting ([facility]) Additional Instructions: Follow up with your primary care provider in one to 2 days. Return to the emergency room immediately if symptoms worsen or any additional concerns.
[2018-03-10 01:32] LABS: ABSOLUTE BASOPHILS # (AUTO) 0.1 10^3/uL (0.0-0.2); ABSOLUTE EOSINOPHILS # (AUTO) 0.1 10^3/uL (0.0-0.6); ABSOLUTE LYMPHOCYTES (AUTO) 2.5 10^3/uL (0.5-4.7); ABSOLUTE MONOCYTES (AUTO) 0.8 10^3/uL (0.1-1.4); ABSOLUTE NEUT (AUTO) 3.9 10^3/uL (1.7-8.2); EOSINOPHILS % (AUTO) 1.7 % (0-6); HEMATOCRIT 33.7 % (37.9-51.0); HEMOGLOBIN 10.6 g/dL (13.5-17.0); LYMPHOCYTES % (AUTO) 33.9 % (13-45); MEAN CORPUSCULAR HEMOGLOBIN 23.5 pg (27.0-33.4); MEAN CORPUSCULAR HGB CONC 31.5 g/dL (32.0-36.0); MEAN CORPUSCULAR VOLUME 75 fl (80-97); MONOCYTES % (AUTO) 10.6 % (3-13); PLATELET COUNT 240 10^3/uL (150-450); RED BLOOD COUNT 4.52 10^6/uL (4.35-5.55); RED CELL DISTRIBUTION WIDTH 16.1 % (11.5-14.0); SEGMENTED NEUTROPHILS % (AUTO) 52.8 % (42-78); TOTAL CELLS COUNTED % (AUTO) 100 %; WHITE BLOOD COUNT 7.3 10^3/uL (4.0-10.5)
[2018-03-10 01:48] LABS: ALANINE AMINOTRANSFERASE 20 U/L (21-72); ALBUMIN 4.1 g/dL (3.5-5.0); ALKALINE PHOSPHATASE 104 U/L (38-126); ANION GAP 12 (5-19); ASPARTATE AMINO TRANSFERASE 16 U/L (17-59); BILIRUBIN,DIRECT 0.3 mg/dL (0.0-0.4); BILIRUBIN,TOTAL 0.3 mg/dL (0.2-1.3); BLOOD UREA NITROGEN 23 mg/dL (7-20); CALCIUM 9.1 mg/dL (8.4-10.2); CARBON DIOXIDE 26 mmol/L (22-30); CHLORIDE 105 mmol/L (98-107); GLUCOSE 95 mg/dL (75-110); LIPASE 51.6 U/L (23-300); POTASSIUM 4.3 mmol/L (3.6-5.0); SODIUM 142.8 mmol/L (137-145); TOTAL PROTEIN 6.6 g/dL (6.3-8.2)
== END 2018-03-10 02:34 | disposition home or self-care (01) ==
LOC: ER 22:09
DX: R11.2 Nausea with vomiting, unspecified (principal); R10.13 Epigastric pain; G89.29 Other chronic pain; Z98.890 Other specified postprocedural states; Z79.899 Other long term (current) drug therapy; I10 Essential (primary) hypertension
CPT/HCPCS: 99283; 36415; 83690; 85025; 80053; J7030

== ENCOUNTER 2018-08-08 18:58 | Emergency (ER) | payer BC, MEDICARE ==
[2018-08-08] MEDS ORDERED: ONDANSETRON HCL INJ/PF 4 MG/2 ML SDV IV ONE (20:07)
[2018-08-08] MEDS ORDERED: MORPHINE SULFATE 10 MG/ML INJ IV ONE (20:11)
--- NOTE | 2018-08-08 20:14 | ER Document Report ---
ED GI/ - General Chief Complaint: Abdominal Pain Stated Complaint: BACK PAIN Time Seen by Provider: 08/08/18 20:00 Mode of Arrival: Ambulatory Information source: Patient, Relative Notes: Patient is a 57-year-old male comes emergency room complaining of having left- sided abdominal pain and back flank pain. He has a history of gastric pacemaker placed back in April. This was implanted secondary to a near repair performed previously that cut his nerves. Patient states that regularly he has diarrhea since this operation. He has a past medical history also associated with hypertension but denies diabetes and also denies smoking. States mostly he is having dry heaves currently. Also has a history of kidney stones and states this feels similar to when he had the last stone. Denies any shortness of breath chest pain. TRAVEL OUTSIDE OF THE [place] IN LAST 30 DAYS: No - HPI Patient complains to provider of: Abdominal pain, Flank pain Onset: Yesterday Timing/Duration: Gradual, Constant, Persistent, Worse Quality of pain: Stabbing Severity at maximum: Severe Severity in ED: Moderate Pain Level: 5 Context: Other - HX of gastric pacer Location: LLQ, Left flank Adult Front & Back Diagram: 1 - Area of discomfort to percussion 2 - Area of discomfort to palaption. Not near the umbilicus Sexual history: Active Associated symptoms: Diarrhea, Vomiting Exacerbated by: Denies Relieved by: Denies Similar symptoms previously: Yes Recently seen / treated by doctor: Yes - Related Data Allergies/Adverse Reactions: celecoxib [From Celebrex] Allergy (Verified 08/08/18 18:59) ibuprofen [From Motrin] Allergy (Verified 08/08/18 18:59) Past Medical History - General Information source: Patient, Relative - Social History Smoking Status: Never Smoker Cigarette use (# per day): No Chew tobacco use (# tins/day): No Smoking Education Provided: No Frequency of alcohol use: None Drug Abuse: None Lives with: Family Family History: Reviewed & Not Pertinent Patient has suicidal ideation: No Patient has homicidal ideation: No - Medical History Medical History: Other - Hypertension - Past Medical History Cardiac Medical History: Reports: Hx Congestive Heart Failure, Hx Hypertension Denies: Hx Coronary Artery Disease, Hx Heart Attack Pulmonary Medical History: Denies: Hx Asthma, Hx Bronchitis, Hx COPD, Hx Pneumonia Neurological Medical History: Reports: None. Denies: Hx Cerebrovascular Accident, Hx Seizures Endocrine Medical History: Reports: None Renal/ Medical History: Denies: Hx Peritoneal Dialysis GI Medical History: Reports: Hx Gastritis, Hx Hiatal Hernia Musculoskeletal Medical History: Reports Hx Arthritis Psychiatric Medical History: Reports: None Traumatic Medical History: Reports: None Past Surgical History: Reports: Hx Abdominal Surgery - Fundoplication, Hx Appendectomy, Hx Bowel Surgery, Hx Orthopedic Surgery - L spine, Hx Tonsillectomy, Other - Misti fundoplication, vagotomy and pyloroplasty, - Immunizations Hx Diphtheria, Pertussis, Tetanus Vaccination: Yes Review of Systems - Review of Systems Constitutional: denies: Chills, Fever, Malaise, Weakness, Weight loss EENT: No symptoms reported Cardiovascular: No symptoms reported Respiratory: No symptoms reported Gastrointestinal: See HPI, Abdominal pain, Diarrhea, Vomiting Genitourinary: No symptoms reported Male Genitourinary: No symptoms reported Skin: No symptoms reported Hematologic/Lymphatic: No symptoms reported Neurological/Psychological: No symptoms reported -: Yes All other systems reviewed and negative Physical Exam - Vital signs Vitals: Temp Pulse Resp BP Pulse Ox 97.6 F 98 20 163/75 H 97 08/08/18 19:03 08/08/18 19:03 08/08/18 19:03 08/08/18 19:03 08/08/18 19:03 Interpretation: Hypertensive - Patient is a 57-year-old male who appears much older than stated age. He is moderately obese. - Notes Notes: As stated patient's a 57-year-old male comes emergency room complaining of abdominal pain and left-sided flank pain. Patient has a history of having a gastric stimulator placement secondary to having a hiatal hernia repair the cut the nerve. He got chronic diarrhea and chronic abdominal discomfort still but has reduced since the surgery. He started with some left-sided flank pain today as well as some abdominal pain on the left side only and is concerned that it may be a kidney stone that he has had in the past. He denies having any change in his urine there is no dysuria noted and no change in color and no blood seen. Patient denies any fever he has had some increased vomiting. - General General appearance: Alert, Other - Uncomfortable In distress: None - HEENT Head: Normocephalic, Atraumatic Eyes: Normal Pupils: PERRL Mouth/Lips: Normal Mucous membranes: Moist Pharynx: Normal. No: Erythema, Exudate, Peritonsillar abscess, Post nasal drainage, Retropharyngeal abscess, Tonsillar hypertrophy, Uvular edema, Potential airway comprom. Neck: Normal, Supple. No: Lymphadenopathy - Respiratory Respiratory status: No respiratory distress Chest status: Nontender Breath sounds: Decreased air movement, Nonproductive cough Chest palpation: Normal - Cardiovascular Rhythm: Regular Heart sounds: Normal auscultation Murmur: No - Abdominal Inspection: Normal, Obese Distension: Distended Bowel sounds: Hyperactive Tenderness: Tender. No: McBurney's point, Muhammad's sign, Guarding, Rebound Organomegaly: No organomegaly - Back Back: Tender, CVA tenderness - Left-sided. No: Nontender, Deformity/step-off, Vertebra tenderness - Extremities General upper extremity: Normal inspection, Nontender, Normal ROM, Normal strength General lower extremity: Normal inspection, Nontender, Normal ROM Hip: Normal, Nontender - Neurological Neuro grossly intact: Yes Cognition: Normal Orientation: AAOx4 Jones Coma Scale Eye Opening: Spontaneous [place] Coma Scale Verbal: Oriented Jones Coma Scale Motor: Obeys Commands [place] Coma Scale Total: 15 Speech: Normal - Psychological Associated symptoms: Normal affect, Normal mood - Skin Skin Temperature: Warm Skin Moisture: Dry Skin Color: Normal Course - Vital Signs Vital signs: Temp Pulse Resp BP Pulse Ox 97.6 F 98 20 163/75 H 97 08/08/18 19:03 08/08/18 19:03 08/08/18 19:03 08/08/18 19:03 08/08/18 19:03 - Laboratory Result Diagrams: 08/08/18 20:30 08/08/18 20:30 Laboratory results interpreted by me: 08/08/18 08/08/18 08/08/18 20:17 20:30 20:30 Hgb 11.8 L Hct 37.4 L MCV 78 L MCH 24.8 L MCHC 31.7 L RDW 17.0 H Monocytes % 14.2 H Potassium 3.5 L Chloride 109 H ALT 15 L Urine Glucose (UA) >=500 H - Diagnostic Test Radiology reviewed: Pending, Image reviewed - There were no acute findings on the CT stone study per radiology Radiology results interpreted by me: 08/08/18 23:05 There were no abnormal findings or acute findings on CT stone study per radiology Discharge - Discharge Clinical Impression: Abdominal cramping Abdominal pain Qualifiers: Abdominal location: left lower quadrant Qualified Code(s): R10.32 - Left lower quadrant pain Disposition: HOME, SELF-CARE Instructions: Abdominal Pain ([facility]), Antispasmodics ([facility]) Additional Instructions: Home and rest. We will place you on Levsin which is medication will help with the abdominal cramping and discomfort. Slowly her bowels down from making so much movement. Should you have any concerns or problems or if you have intense increased pain or any concerns return to ER for recheck. Prescriptions: Hyoscyamine Sulfate [Levsin 0.125 Tablet] 0.125 mg PO 6XD PRN #60 tablet PRN Reason: Referrals: POP MARK PA-C [Primary Care Provider] - Follow up as needed
[2018-08-08 20:33] LABS: APPEARANCE,URINE CLEAR; BILIRUBIN,URINE NEGATIVE (NEGATIVE); COLOR,URINE YELLOW; GLUCOSE, URINE >=500 mg/dL (NEGATIVE); KETONES,URINE NEGATIVE (NEGATIVE); LEUKOCYTE ESTERASE,URINE NEGATIVE (NEGATIVE); NITRITE,URINE NEGATIVE (NEGATIVE); PROTEIN,URINE NEGATIVE (NEGATIVE); UROBILINOGEN,URINE NEGATIVE mg/dL (<2.0)
--- NOTE | 2018-08-08 20:41 | RADIOLOGY REPORT (SQ) ---
EXAM DESCRIPTION: CT ABD/PELVIS NO ORAL OR IV COMPLETED DATE/TIME: 08/08/2018 8:23 pm REASON FOR STUDY: Left sided flank pain and abd pain COMPARISON: None. TECHNIQUE: CT scan of the abdomen and pelvis performed without intravenous or oral contrast. Images reviewed with lung, soft tissue, and bone windows. Reconstructed coronal and sagittal MPR images revi ewed. All images stored on PACS. All CT scanners at this facility use dose modulation, iterative reconstruction, and/or weight based d osing when appropriate to reduce radiation dose to as low as reasonably achievable (ALARA). [facility]: Dose Right [facility]: CareDose [facility]: Dose Right [facility]: Teradose 4D [facility]: Smart Zuse RADIATION DOSE: CT Rad equipment meets quality standard of care and radiation dose reduction techniq ues were employed. CTDIvol: 16.2 mGy. DLP: 854 mGy-cm.mGy. LIMITATIONS: None. FINDINGS: LOWER CHEST: No significant findings. No nodules or infiltrates. NON-CONTRASTED LIVER, SPLEEN, ADRENALS: Evaluation limited by lack of IV contrast. No identified sign ificant masses. PANCREAS: No masses. No peripancreatic inflammatory changes. GALLBLADDER: No identified stones by CT criteria. No inflammatory changes to suggest cholecystitis. RIGHT KIDNEY AND URETER: There are small nonobstructing intrarenal calculi. LEFT KIDNEY AND URETER: Nonobstructing intrarenal calculi. The largest measures about 11 mm. AORTA AND RETROPERITONEUM: No aneurysm. No retroperitoneal masses or adenopathy. BOWEL AND PERITONEAL CAVITY: No obvious masses or inflammatory changes. No free fluid. APPENDIX: Surgically absent. PELVIS, BLADDER, AND ABDOMINAL WALL:No abnormal masses. No free fluid. Bladder normal. BONES: No significant findings. OTHER: No other significant finding. IMPRESSION: Intrarenal calculi bilaterally. No ureteral stone or obstruction. COMMENT: Quality ID # [id number]: Final reports with documentation of one or more dose reduction techniques (e.g., Automated exposure control, adjustment of the mA and/or kV according to patient size, use of iterative reconstruction technique) TECHNICAL DOCUMENTATION: JOB ID: [id number] [employer].- All Rights Reserved Reading location - IP/workstation name: [email or web address]
[2018-08-08 20:53] LABS: ABSOLUTE BASOPHILS # (AUTO) 0.1 10^3/uL (0.0-0.2); ABSOLUTE EOSINOPHILS # (AUTO) 0.2 10^3/uL (0.0-0.6); ABSOLUTE LYMPHOCYTES (AUTO) 2.4 10^3/uL (0.5-4.7); ABSOLUTE MONOCYTES (AUTO) 1.3 10^3/uL (0.1-1.4); ABSOLUTE NEUT (AUTO) 5.3 10^3/uL (1.7-8.2); BASOPHILS % (AUTO) 0.8 % (0-2); EOSINOPHILS % (AUTO) 2.4 % (0-6); HEMATOCRIT 37.4 % (37.9-51.0); HEMOGLOBIN 11.8 g/dL (13.5-17.0); LYMPHOCYTES % (AUTO) 25.4 % (13-45); MEAN CORPUSCULAR HEMOGLOBIN 24.8 pg (27.0-33.4); MEAN CORPUSCULAR HGB CONC 31.7 g/dL (32.0-36.0); MEAN CORPUSCULAR VOLUME 78 fl (80-97); MONOCYTES % (AUTO) 14.2 % (3-13); PLATELET COUNT 252 10^3/uL (150-450); RED BLOOD COUNT 4.78 10^6/uL (4.35-5.55); SEGMENTED NEUTROPHILS % (AUTO) 57.2 % (42-78); TOTAL CELLS COUNTED % (AUTO) 100 %; WHITE BLOOD COUNT 9.3 10^3/uL (4.0-10.5)
[2018-08-08 21:02] LABS: ALANINE AMINOTRANSFERASE 15 U/L (21-72); ALBUMIN 4.2 g/dL (3.5-5.0); ALKALINE PHOSPHATASE 85 U/L (38-126); ANION GAP 9 (5-19); ASPARTATE AMINO TRANSFERASE 22 U/L (17-59); BILIRUBIN,DIRECT 0.3 mg/dL (0.0-0.4); BILIRUBIN,TOTAL 0.3 mg/dL (0.2-1.3); BLOOD UREA NITROGEN 16 mg/dL (7-20); CALCIUM 8.7 mg/dL (8.4-10.2); CARBON DIOXIDE 23 mmol/L (22-30); CHLORIDE 109 mmol/L (98-107); GLUCOSE 87 mg/dL (75-110); LIPASE 70.3 U/L (23-300); POTASSIUM 3.5 mmol/L (3.6-5.0); SODIUM 141.3 mmol/L (137-145); TOTAL PROTEIN 7.1 g/dL (6.3-8.2)
[2018-08-08] MEDS ORDERED: HYOSCYAMINE SULFATE 0.125 MG TABLET PO ONE (23:09)
[2018-08-08] MEDS ORDERED: HYOSCYAMINE SULFATE 0.125 MG TABLET ONE (23:19)
[2018-08-08 23:37] VITALS: BP 150/90
== END 2018-08-08 23:38 | disposition home or self-care (01) ==
LOC: ER 18:58
DX: R10.32 Left lower quadrant pain (principal); R10.9 Unspecified abdominal pain; M54.9 Dorsalgia, unspecified; R19.7 Diarrhea, unspecified; I10 Essential (primary) hypertension; Z96.89 Presence of other specified functional implants; Z88.8 Allergy status to other drugs, medicaments and biological substances; Z87.19 Personal history of other diseases of the digestive system; Z90.49 Acquired absence of other specified parts of digestive tract; E66.9 Obesity, unspecified; Z68.35 Body mass index [BMI] 35.0-35.9, adult
CPT/HCPCS: 99284; 96374; 96375; 36415; 83690; 85025; 80053; 81001; 74176; J3490; J2270; J2405

== ENCOUNTER 2018-08-28 01:54 | Emergency (ER) | payer BC, MEDICARE ==
--- NOTE | 2018-08-28 02:43 | ER Document Report ---
ED General - General Chief Complaint: Nausea/Vomiting Stated Complaint: ABDOMINAL PAIN Time Seen by Provider: 08/28/18 02:41 Notes: Patient is a 57-year-old male with a history of recurrent vomiting and cyclic vomiting type syndrome. He has a history of a Misti fundoplication. Apparently developed nerve damage during and some complications. He had a gastric nerve stimulator placed earlier this year. This is help with his vomiting but he still has episodes where he will go several days with recurrent vomiting and sometimes needs further treatment. He takes Zofran, a suppository of an unknown medication, Reglan. He says spite these medications he is still having some vomiting in the spring of just gastric acid. No blood. No blood in the stool. No dark tarry stools. Some epigastric pain. He is on chronic pain medication. He has been seen in this ER in the past for similar symptoms. TRAVEL OUTSIDE OF THE [place] IN LAST 30 DAYS: No - Related Data Allergies/Adverse Reactions: celecoxib [From Celebrex] Allergy (Verified 08/28/18 01:55) ibuprofen [From Motrin] Allergy (Verified 08/28/18 01:55) Past Medical History - Social History Smoking Status: Never Smoker Frequency of alcohol use: None Drug Abuse: None Family History: Reviewed & Not Pertinent - Past Medical History Cardiac Medical History: Reports: Hx Congestive Heart Failure, Hx Hypertension Denies: Hx Coronary Artery Disease, Hx Heart Attack Pulmonary Medical History: Denies: Hx Asthma, Hx Bronchitis, Hx COPD, Hx Pneumonia Neurological Medical History: Denies: Hx Cerebrovascular Accident, Hx Seizures Renal/ Medical History: Denies: Hx Peritoneal Dialysis GI Medical History: Reports: Hx Gastritis, Hx Hiatal Hernia Musculoskeletal Medical History: Reports Hx Arthritis Past Surgical History: Reports: Hx Abdominal Surgery - Fundoplication, Hx Appendectomy, Hx Bowel Surgery, Hx Orthopedic Surgery - L spine, Hx Tonsillectomy, Other - Misti fundoplication, vagotomy and pyloroplasty, - Immunizations Hx Diphtheria, Pertussis, Tetanus Vaccination: Yes Review of Systems - Review of Systems Notes: My Normal Review Basic REVIEW OF SYSTEMS: CONSTITUTIONAL : Denies fever, chills, or sweats. Denies recent illness. EENT: Denies eye, ear, throat, or mouth pain or symptoms. Denies nasal or sinus congestion. CARDIOVASCULAR: Denies chest pain. RESPIRATORY: Denies cough, cold, or chest congestion. Denies shortness of breath, difficulty breathing, or wheezing. GASTROINTESTINAL: Abdominal pain. Vomiting. MUSCULOSKELETAL: Denies neck or back pain or joint pain or swelling. SKIN: Denies rash or skin lesions. NEUROLOGICAL: Denies altered mental status or loss of consciousness. Denies headache. Denies weakness or paralysis or loss of use of either side. Denies problems with gait or speech. Denies sensory or motor loss. ALL OTHER SYSTEMS REVIEWED AND NEGATIVE. Physical Exam - Vital signs Vitals: Temp Pulse Resp BP Pulse Ox 98.5 F 64 20 187/96 H 96 08/28/18 02:10 08/28/18 02:10 08/28/18 02:10 08/28/18 02:10 08/28/18 02:10 - Notes Notes: General Appearance: Well nourished, alert, cooperative, no acute distress, no obvious discomfort. Vitals: reviewed, See vital signs table. Head: no swelling or tenderness to the head Eyes: PERRL, EOMI, Conjuctiva clear Mouth: No decreasd moisture Lungs: No wheezing, No rales, No rhonci, No accessory muscle use, good air exchange bilaterally. Heart: Normal rate, Regular rythm, No murmur, no rub Abdomen: Normal BS, soft, No rigidity, some epigastric abdominal tenderness to palpation., No guarding, no rebound, no abdominal masses, no organomegaly Extremities: strength 5/5 in all extremities, good pulses in all extremities, no swelling or tenderness in the extremities, no edema. Skin: warm, dry, appropriate color, no rash Neuro: speech clear, oriented x 3, normal affect, responds appropriately to questions. Course - Re-evaluation Re-evalutation: 08/28/18 05:48 Patient's says that he is feeling some improved. He says he still has some nausea but is improved as compared to when he first arrived. His abdomen is not distended. Is not significantly painful to palpation. Symptoms are very similar to the 40s had chronically off and on for a long time in regards to his chronic vomiting syndrome and chronic abdominal pain. At this time I do not want to give any opiate medications as they would most likely slow his gastric motility make his symptoms worse. At this time I feel he is safe to be discharged home as his labs show no evidence of dehydration his electrodes are normal and his vital signs are normal and on physical exam he has no signs of dehydration. Overall clinically looks well. I encouraged him to follow-up closely with his doctor in the next 2 days. I encouraged him return to ER if he has recurrent worsening nausea, worsening abdominal pain, fevers, or if he feels he is worsening in any way. Patient agrees with plan will be discharged home. Dictation of this chart was performed using voice recognition software; therefore, there may be some unintended grammatical errors. - Vital Signs Vital signs: Temp Pulse Resp BP Pulse Ox 98.5 F 64 20 187/96 H 96 08/28/18 02:10 08/28/18 02:10 08/28/18 02:10 08/28/18 02:10 08/28/18 02:10 - Laboratory Result Diagrams: 08/28/18 03:01 08/28/18 03:01 Laboratory results interpreted by me: 08/28/18 08/28/18 03:01 03:01 Hgb 12.2 L Hct 37.8 L MCH 26.0 L RDW 18.9 H Seg Neutrophils % 78.9 H Glucose 137 H Direct Bilirubin 0.5 H Lipase 18.2 L - EKG Interpretation by Me Additional EKG results interpreted by me: 08/28/18 02:43 EKG is reviewed and interpreted by me. EKG shows normal sinus rhythm with a rate of [address] segment elevation or depression. CA interval, QRS duration, QTc intervals are within normal range. Discharge - Discharge Clinical Impression: Abdominal pain Qualifiers: Abdominal location: generalized Qualified Code(s): R10.84 - Generalized abdominal pain Vomiting Qualifiers: Vomiting type: unspecified Vomiting Intractability: non-intractable Nausea presence: with nausea Qualified Code(s): R11.2 - Nausea with vomiting, unspecified Condition: Good Disposition: HOME, SELF-CARE Additional Instructions: Please intake only noncaffeinated liquids and your medications over the next 24 hurs, Than progress to a bland diet. Follow up with your doctor in 2 days. Return to the ER if you have increasing abdominal pain, worsening nausea, abdominal distention, fevers, or feel that you are worsening in any way. Referrals: POP MARK PA-C [Primary Care Provider] - 08/30/18
[2018-08-28] MEDS ORDERED: HALOPERIDOL LACTATE INJ 5 MG/1 ML VIAL IM ONE (02:49)
[2018-08-28] MEDS ORDERED: NORMAL SALINE 500 ML IV ONE (02:50)
[2018-08-28 03:14] LABS: ABSOLUTE MONOCYTES (AUTO) 0.3 10^3/uL (0.1-1.4); ABSOLUTE NEUT (AUTO) 5.3 10^3/uL (1.7-8.2); BASOPHILS % (AUTO) 0.7 % (0-2); EOSINOPHILS % (AUTO) 0.3 % (0-6); HEMATOCRIT 37.8 % (37.9-51.0); HEMOGLOBIN 12.2 g/dL (13.5-17.0); LYMPHOCYTES % (AUTO) 15.5 % (13-45); MEAN CORPUSCULAR HGB CONC 32.2 g/dL (32.0-36.0); MEAN CORPUSCULAR VOLUME 81 fl (80-97); MONOCYTES % (AUTO) 4.6 % (3-13); PLATELET COUNT 173 10^3/uL (150-450); RED BLOOD COUNT 4.69 10^6/uL (4.35-5.55); RED CELL DISTRIBUTION WIDTH 18.9 % (11.5-14.0); SEGMENTED NEUTROPHILS % (AUTO) 78.9 % (42-78); TOTAL CELLS COUNTED % (AUTO) 100 %; WHITE BLOOD COUNT 6.7 10^3/uL (4.0-10.5)
[2018-08-28 03:35] LABS: ALANINE AMINOTRANSFERASE 24 U/L (21-72); ALBUMIN 4.2 g/dL (3.5-5.0); ALKALINE PHOSPHATASE 84 U/L (38-126); ANION GAP 8 (5-19); ASPARTATE AMINO TRANSFERASE 20 U/L (17-59); BILIRUBIN,DIRECT 0.5 mg/dL (0.0-0.4); BILIRUBIN,TOTAL 0.6 mg/dL (0.2-1.3); BLOOD UREA NITROGEN 11 mg/dL (7-20); CALCIUM 9.2 mg/dL (8.4-10.2); CARBON DIOXIDE 26 mmol/L (22-30); CHLORIDE 107 mmol/L (98-107); GLUCOSE 137 mg/dL (75-110); LIPASE 18.2 U/L (23-300); SODIUM 141.2 mmol/L (137-145); TOTAL PROTEIN 6.8 g/dL (6.3-8.2)
[2018-08-28] MEDS ORDERED: PROMETHAZINE HCL INJ 25 MG/1 ML VIAL IM ONE (04:45)
[2018-08-28 06:05] VITALS: BP 163/82
--- NOTE | 2018-08-28 07:56 | EKG REPORT ---
SEVERITY:- BORDERLINE ECG - SINUS RHYTHM ATRIAL PREMATURE COMPLEX PROBABLE LEFT ATRIAL ABNORMALITY : Confirmed by: Wendy Zaman 28-Aug-2018 07:55:49
== END 2018-08-28 06:05 | disposition home or self-care (01) ==
LOC: ER 01:54
DX: G43.A0 Cyclical vomiting, in migraine, not intractable (principal); R10.84 Generalized abdominal pain; G89.29 Other chronic pain; R10.816 Epigastric abdominal tenderness; I10 Essential (primary) hypertension; Z79.899 Other long term (current) drug therapy; Z98.890 Other specified postprocedural states; Z96.89 Presence of other specified functional implants; Z88.8 Allergy status to other drugs, medicaments and biological substances; Z90.49 Acquired absence of other specified parts of digestive tract
CPT/HCPCS: 93005; 99284; 96372; 96360; 96361; 36415; 83690; 85025; 80053; 93010; J1630; J2550

== ENCOUNTER → 2018-09-05 | Outpatient (CLI) | payer BC, MEDICARE ==
--- NOTE | 2018-09-05 13:14 | RADIOLOGY REPORT (SQ) ---
EXAM DESCRIPTION: KUB COMPLETED DATE/TIME: 09/05/2018 12:51 pm REASON FOR STUDY: GENERALIZED ABD. PAIN R10.84 GENERALIZED ABDOMINAL PAIN COMPARISON: 03/06/2018 NUMBER OF VIEWS: One view. TECHNIQUE: Supine radiographic image of the abdomen acquired. LIMITATIONS: None. FINDINGS: BOWEL GAS PATTERN: Normal bowel gas pattern. No dilated loops. CALCIFICATIONS: Calcifications overlie both kidneys. SOFT TISSUES: No gross mass or suggestion of organomegaly. HARDWARE: None in the abdomen. BONES: No acute fracture. No worrisome bone lesions. OTHER: No other significant finding. IMPRESSION: Renal calcifications. Nonspecific abdomen. TECHNICAL DOCUMENTATION: JOB ID: [id number] [employer]- All Rights Reserved Reading location - IP/workstation name: [email or web address]
== END ==
LOC: OD 12:34
PROVIDERS: ATTEND Physician Assistant
DX: R10.84 Generalized abdominal pain (principal); N28.89 Other specified disorders of kidney and ureter
CPT/HCPCS: 74018

== ENCOUNTER 2019-09-07 10:56 | Emergency (ER) | payer BC, MEDICARE ==
--- NOTE | 2019-09-07 11:18 | ER Document Report ---
ED Medical Screen (RME) - General Chief Complaint: Leg Pain Stated Complaint: BILATERAL LEG PAIN/SWELLING Time Seen by Provider: 09/07/19 11:12 Primary Care Provider: POP MARK PA-C [Primary Care Provider] - Follow up as needed TRAVEL OUTSIDE OF THE [place] IN LAST 30 DAYS: No - HPI Notes: 09/07/19 11:16 Patient is a 5-year-old male who presents complaining of bilateral lower extremity swelling right worse than left that began last night into today. He does have a history of hypertension and congestive heart failure. He does have a history of a DVT to his right leg in the past. No fever or CP/sob. I have treated and performed a rapid initial assessment of this patient. A comprehensive ED assessment and evaluation of the patient, analysis of test results and completion of medical decision making process will be conducted by additional ED providers. PHYSICAL EXAMINATION: GENERAL: Well-appearing, well-nourished and in no acute distress. LE's: 2+ pitting edema RLE. 1-2+ LLE. - Related Data Allergies/Adverse Reactions: celecoxib [From Celebrex] Allergy (Verified 08/28/18 01:55) ibuprofen [From Motrin] Allergy (Verified 08/28/18 01:55) Past Medical History - Past Medical History Cardiac Medical History: Reports: Hx Congestive Heart Failure, Hx Hypertension Denies: Hx Coronary Artery Disease, Hx Heart Attack Pulmonary Medical History: Denies: Hx Asthma, Hx Bronchitis, Hx COPD, Hx Pneumonia Neurological Medical History: Denies: Hx Cerebrovascular Accident, Hx Seizures Renal/ Medical History: Denies: Hx Peritoneal Dialysis GI Medical History: Reports: Hx Gastritis, Hx Hiatal Hernia Musculoskeltal Medical History: Reports Hx Arthritis Past Surgical History: Reports: Hx Abdominal Surgery - Fundoplication, Hx Appendectomy, Hx Bowel Surgery, Hx Orthopedic Surgery - L spine, Hx Tonsillectomy, Other - Misti fundoplication, vagotomy and pyloroplasty, - Immunizations Hx Diphtheria, Pertussis, Tetanus Vaccination: Yes Physical Exam - Vital signs Vitals: Temp Pulse Resp BP Pulse Ox 98 F 61 16 148/79 H 94 09/07/19 11:03 09/07/19 11:03 09/07/19 11:03 09/07/19 11:03 09/07/19 11:03 Course - Vital Signs Vital signs: Temp Pulse Resp BP Pulse Ox 98 F 61 16 148/79 H 94 09/07/19 11:03 09/07/19 11:03 09/07/19 11:03 09/07/19 11:03 09/07/19 11:03 Doctor's Discharge - Discharge Referrals: POP MARK PA-C [Primary Care Provider] - Follow up as needed
[2019-09-07 11:57] LABS: ABSOLUTE BASOPHILS # (AUTO) 0.1 10^3/uL (0.0-0.2); ABSOLUTE EOSINOPHILS # (AUTO) 0.3 10^3/uL (0.0-0.6); ABSOLUTE LYMPHOCYTES (AUTO) 1.7 10^3/uL (0.5-4.7); ABSOLUTE MONOCYTES (AUTO) 0.6 10^3/uL (0.1-1.4); BASOPHILS % (AUTO) 1.3 % (0-2); EOSINOPHILS % (AUTO) 4.9 % (0-6); HEMATOCRIT 38.4 % (37.9-51.0); HEMOGLOBIN 12.3 g/dL (13.5-17.0); LYMPHOCYTES % (AUTO) 29.7 % (13-45); MEAN CORPUSCULAR HEMOGLOBIN 27.1 pg (27.0-33.4); MEAN CORPUSCULAR HGB CONC 32.1 g/dL (32.0-36.0); MEAN CORPUSCULAR VOLUME 84 fl (80-97); MONOCYTES % (AUTO) 10.7 % (3-13); PLATELET COUNT 196 10^3/uL (150-450); RED BLOOD COUNT 4.54 10^6/uL (4.35-5.55); RED CELL DISTRIBUTION WIDTH 15.6 % (11.5-14.0); SEGMENTED NEUTROPHILS % (AUTO) 53.4 % (42-78); TOTAL CELLS COUNTED % (AUTO) 100 %; WHITE BLOOD COUNT 5.5 10^3/uL (4.0-10.5)
[2019-09-07 12:09] LABS: INTERNATIONAL RATION (INR) 0.91; PROTHROMBIN TIME 12.2 SEC (11.4-15.4)
[2019-09-07 12:17] LABS: APPEARANCE,URINE CLEAR; BILIRUBIN,URINE NEGATIVE (NEGATIVE); COLOR,URINE COLORLESS; GLUCOSE, URINE NEGATIVE (NEGATIVE); KETONES,URINE NEGATIVE (NEGATIVE); LEUKOCYTE ESTERASE,URINE NEGATIVE (NEGATIVE); NITRITE,URINE NEGATIVE (NEGATIVE); PROTEIN,URINE NEGATIVE (NEGATIVE); URINE SPECIFIC GRAVITY 1.005; UROBILINOGEN,URINE NEGATIVE mg/dL (<2.0)
[2019-09-07 12:20] LABS: ALBUMIN 4.1 g/dL (3.5-5.0); ALKALINE PHOSPHATASE 105 U/L (38-126); ANION GAP 6 (5-19); ASPARTATE AMINO TRANSFERASE 18 U/L (17-59); BILIRUBIN,DIRECT 0.1 mg/dL (0.0-0.4); BILIRUBIN,TOTAL 0.2 mg/dL (0.2-1.3); BLOOD UREA NITROGEN 22 mg/dL (7-20); CALCIUM 9.3 mg/dL (8.4-10.2); CARBON DIOXIDE 27 mmol/L (22-30); CHLORIDE 105 mmol/L (98-107); GLUCOSE 96 mg/dL (75-110); POTASSIUM 4.6 mmol/L (3.6-5.0); TOTAL PROTEIN 6.7 g/dL (6.3-8.2)
--- NOTE | 2019-09-07 12:20 | RADIOLOGY REPORT (SQ) ---
EXAM DESCRIPTION: CHEST 2 VIEWS COMPLETED DATE/TIME: 09/07/2019 11:57 am REASON FOR STUDY: LE edema, h/o CHF COMPARISON: None. EXAM PARAMETERS: NUMBER OF VIEWS: two views TECHNIQUE: Digital Frontal and Lateral radiographic views of the chest acquired. RADIATION DOSE: NA LIMITATIONS: none FINDINGS: LUNGS AND PLEURA: No opacities, masses or pneumothorax. No pleural effusion. Mild flatten ing of the hemidiaphragm and increased intrathoracic AP diameter. MEDIASTINUM AND HILAR STRUCTURES: No masses or contour abnormalities. HEART AND VASCULAR STRUCTURES: Heart normal size. No evidence for failure. BONES: No acute findings. HARDWARE: Metallic leads overlie upper midline abdomen. OTHER: No other significant finding. IMPRESSION: No evidence of pulmonary edema or other acute cardiopulmonary process. TECHNICAL DOCUMENTATION: JOB ID: [id number] [employer]- All Rights Reserved Reading location - IP/workstation name: [email or web address]
--- NOTE | 2019-09-07 13:16 | ER Document Report ---
ED General - General Chief Complaint: Leg Swelling Stated Complaint: BILATERAL LEG PAIN/SWELLING Time Seen by Provider: 09/07/19 11:12 Primary Care Provider: POP MARK PA-C [Primary Care Provider] - Follow up as needed TRAVEL OUTSIDE OF THE [place] IN LAST 30 DAYS: No - HPI Patient complains to provider of: Leg swelling Notes: 59-year-old male presents with increasing right leg swelling and pain 8/10 throbbing in nature. Nothing makes the pain better or worse. Patient also has mild swelling in his left leg he thinks that is far less than the right leg. Patient has history of DVT in the past. He states this feels similar to his previous DVT. Patient denies any respiratory complaints, hemoptysis or chest pain. - Related Data Allergies/Adverse Reactions: celecoxib [From Celebrex] Allergy (Verified 08/28/18 01:55) ibuprofen [From Motrin] Allergy (Verified 08/28/18 01:55) Past Medical History - Social History Smoking Status: Current Every Day Smoker Chew tobacco use (# tins/day): No Frequency of alcohol use: None Drug Abuse: None Family History: Reviewed & Not Pertinent Patient has suicidal ideation: No Patient has homicidal ideation: No - Past Medical History Cardiac Medical History: Reports: Hx Congestive Heart Failure, Hx Hypertension Denies: Hx Coronary Artery Disease, Hx Heart Attack Pulmonary Medical History: Denies: Hx Asthma, Hx Bronchitis, Hx COPD, Hx Pneumonia Neurological Medical History: Denies: Hx Cerebrovascular Accident, Hx Seizures Renal/ Medical History: Denies: Hx Peritoneal Dialysis GI Medical History: Reports: Hx Gastritis, Hx Hiatal Hernia Musculoskeletal Medical History: Reports Hx Arthritis Past Surgical History: Reports: Hx Abdominal Surgery - Fundoplication, Hx Appendectomy, Hx Bowel Surgery, Hx Orthopedic Surgery - L spine, Hx Tonsillectom y, Other - Misti fundoplication, vagotomy and pyloroplasty, - Immunizations Hx Diphtheria, Pertussis, Tetanus Vaccination: Yes Review of Systems - Review of Systems Notes: REVIEW OF SYSTEMS: CONSTITUTIONAL: -fevers, -chills EENT: -eye pain, -difficulty swallowing, -nasal congestion CARDIOVASCULAR: -chest pain, -syncope. RESPIRATORY: -cough, -SOB GASTROINTESTINAL: -abdominal pain, -nausea, -vomiting, -diarrhea GENITOURINARY: -dysuria, -hematuria MUSCULOSKELETAL: Right leg swelling, left leg markedly smaller than right leg diffusely SKIN: -rash or skin lesions. HEMATOLOGIC: -easy bruising or bleeding. LYMPHATIC: -swollen, enlarged glands. NEUROLOGICAL: -altered mental status or loss of consciousness, -headache, - neurologic symptoms PSYCHIATRIC: -anxiety, -depression. ALL OTHER SYSTEMS REVIEWED AND NEGATIVE. Physical Exam - Vital signs Vitals: Temp Pulse Resp BP Pulse Ox 98 F 61 16 148/79 H 94 09/07/19 11:03 09/07/19 11:03 09/07/19 11:03 09/07/19 11:03 09/07/19 11:03 - Notes Notes: PHYSICAL EXAMINATION: GENERAL: Well-appearing, well-nourished and in no acute distress. HEAD: Atraumatic, normocephalic. EYES: Pupils equal round and reactive to light, extraocular movements intact, sclera anicteric, conjunctiva are normal. ENT: nares patent, oropharynx clear without exudates. Moist mucous membranes. NECK: Normal range of motion, supple without lymphadenopathy LUNGS: Breath sounds clear to auscultation bilaterally and equal. No wheezes rales or rhonchi. HEART: Regular rate and rhythm without murmurs ABDOMEN: Soft, nontender, normoactive bowel sounds. No guarding, no rebound. No masses appreciated. EXTREMITIES: Right leg diffusely swollen from mid thigh distally. Eating edema in the lower extremity. Left leg appears normal no pain on palpation. There is pain in the right leg to palpation NEUROLOGICAL: Cranial nerves grossly intact. Normal speech, normal gait. Normal sensory and motor exams. PSYCH: Normal mood, normal affect. SKIN: Warm, Dry, normal turgor, no rashes or lesions noted. Course - Re-evaluation Re-evalutation: 09/07/19 14:11 59-year-old man presents with increasing right leg swelling. Some pain in the leg as well. Patient given opiate analgesia feeling markedly improved. Patient's extensive lab work-up was unremarkable. Patient has ultrasound performed of his right lower extremity finds proximal DVT. There appears to be some chronic elements of this. There is some floats partially occluding not completely occlusive. Patient has a reassuring exam distal intact neurovascularly. Patient be started on oral anticoagulants given analgesia for discomfort. Imperative the patient follow-up with his PCP in the near term. Her antico agulants., Initial prescription will also need to be refilled. 09/07/19 14:12 Have lengthy conversation about risks of being on anticoagulants and need to look out for signs of bleeding. Especially for head trauma that he will be need to see the emergency department. - Vital Signs Vital signs: Temp Pulse Resp BP Pulse Ox 98 F 61 16 148/79 H 94 09/07/19 11:03 09/07/19 11:03 09/07/19 11:03 09/07/19 11:03 09/07/19 11:03 - Laboratory Result Diagrams: 09/07/19 11:40 09/07/19 11:40 Laboratory results interpreted by me: 09/07/19 09/07/19 11:40 11:40 Hgb 12.3 L RDW 15.6 H BUN 22 H Discharge - Discharge Clinical Impression: DVT (deep venous thrombosis) Qualifiers: DVT location: lower extremity Affected thrombotic vein of extremity: femoral Chronicity: acute Laterality: right Qualified Code(s): I82.411 - Acute embolism and thrombosis of right femoral vein Condition: Stable Disposition: HOME, SELF-CARE Instructions: DVT Outpatient Treatment ([facility]) Additional Instructions: See your PCP early next week. Prescriptions: Apixaban [Eliquis] 5 mg PO BID 30 Days #48 tab.ds.pk Oxycodone HCl [Oxycontin Ir 5 Mg Tablet] 1 - 2 mg PO Q4H PRN #15 tablet PRN Reason: For Pain Referrals: POP MARK PA-C [Primary Care Provider] - Follow up as needed
[2019-09-07] MEDS ORDERED: FENTANYL CITRATE INJ/PF 100 MCG/2 ML AMPUL IM ONE (14:00)
[2019-09-07] MEDS ORDERED: APIXABAN 5 MG TABLET PO ONE (14:12)
[2019-09-07 14:28] VITALS: BP 155/75
--- NOTE | 2019-09-07 15:54 | VASCULAR PRELIM REPORT ---
Provider Note Provider Note: Subacute DVT in the right Femoral vein on duplex imaging.
--- NOTE | 2019-09-08 09:20 | XCELERA REPORT ---
[address] [address] Lower Extremity Venous Evaluation Procedure: Color flow and duplex imaging of the veins of the right lower extremity as well as the left Common Femoral vein. Right Sided Venous Evaluation Abnormal vessel filling, no compression or Colour flow , enlarged veins, echogenic content in the Common Femoral down to the Popliteal veins. Left Sided Venous Evaluation The left common femoral vein is fully compressible. Spontaneous and phasic flow is present in the left common femoral vein. Critical Findings Evaluation of the record shows that appropriate provider planning is in progress. Interpretation Summary Subacute or chronic DVT is present in the right Common Femoral vein. Name: GLORIA GOODRICH Age: 59 yrs Gender: Male : 1960 Patient Status: Emergency Patient Location: ER Study Date: 09/07/2019 01:34 PM Reason For Study: Rt LE swelling Ordering Physician: RAYSHAWN ACHARYA Performed By: Tacho Durán : RAYSHAWN ACHARYA > Rigoberto Piedra
== END 2019-09-07 14:28 | disposition home or self-care (01) ==
LOC: ER 10:56
DX: I82.411 Acute embolism and thrombosis of right femoral vein (principal); M79.89 Other specified soft tissue disorders; F17.200 Nicotine dependence, unspecified, uncomplicated; I50.9 Heart failure, unspecified; I11.0 Hypertensive heart disease with heart failure; Z88.6 Allergy status to analgesic agent
CPT/HCPCS: 36415; 85025; 85610; 85730; 80053; 81001; 83880; 93971 ×2; 71046; J3010; 96372; 99284

== ENCOUNTER → 2020-04-09 | Outpatient (CLI) | payer BC, MEDICARE ==
--- NOTE | 2020-04-09 14:06 | RADIOLOGY REPORT (SQ) ---
EXAM DESCRIPTION: LUMBAR SPINE COMPLETE IMAGES COMPLETED DATE/TIME: 04/09/2020 12:55 pm REASON FOR STUDY: LUMBAGO WITH SCIATICA, LEFT SIDE M54.42 LUMBAGO WITH SCIATICA, LEFT SIDE COMPARISON: None. NUMBER OF VIEWS: Five views including obliques. TECHNIQUE: AP, lateral, oblique, and sacral radiographic images acquired of the lumbar spine. LIMITATIONS: None. FINDINGS: MINERALIZATION: Normal. SEGMENTATION: Normal. No transitional anatomy. ALIGNMENT: Anterolisthesis of L5 on S1. VERTEBRAE: Lateral fusion from L4-S1. Anterior osteophytes at L3-4. DISCS: Preserved height. No significant osteophytes or end plate irregularity. POSTERIOR ELEMENTS: Pedicles and facets are intact. No pars defect or posterior arch defects. HARDWARE: None in the spine. PARASPINAL SOFT TISSUES: Normal. PELVIS: Intact as visualized. No fractures or worrisome bone lesions. SI joints intact. OTHER: No other significant finding. IMPRESSION: Anterolisthesis. Lateral fusions. Spondylosis. TECHNICAL DOCUMENTATION: JOB ID: [id number] 2010 [employer]- All Rights Reserved Reading location - IP/workstation name: [email or web address]
== END ==
LOC: OD 11:04
PROVIDERS: ATTEND Physician Assistant
DX: M54.42 Lumbago with sciatica, left side (principal); M47.816 Spondylosis without myelopathy or radiculopathy, lumbar region
CPT/HCPCS: 72110

== ENCOUNTER 2020-07-27 19:38 | Emergency (ER) | payer BC, MEDICARE ==
[2020-07-27 20:38] LABS: ABSOLUTE EOSINOPHILS # (AUTO) 0.3 10^3/uL (0.0-0.6); ABSOLUTE LYMPHOCYTES (AUTO) 2.2 10^3/uL (0.5-4.7); ABSOLUTE MONOCYTES (AUTO) 0.6 10^3/uL (0.1-1.4); ABSOLUTE NEUT (AUTO) 4.6 10^3/uL (1.7-8.2); BASOPHILS % (AUTO) 0.2 % (0-2); EOSINOPHILS % (AUTO) 3.3 % (0-6); HEMATOCRIT 35.4 % (37.9-51.0); HEMOGLOBIN 11.8 g/dL (13.5-17.0); MEAN CORPUSCULAR HEMOGLOBIN 29.5 pg (27.0-33.4); MEAN CORPUSCULAR HGB CONC 33.4 g/dL (32.0-36.0); MEAN CORPUSCULAR VOLUME 88 fl (80-97); MONOCYTES % (AUTO) 7.8 % (3-13); PLATELET COUNT 170 10^3/uL (150-450); RED CELL DISTRIBUTION WIDTH 15.6 % (11.5-14.0); SEGMENTED NEUTROPHILS % (AUTO) 59.7 % (42-78); TOTAL CELLS COUNTED % (AUTO) 100 %; WHITE BLOOD COUNT 7.7 10^3/uL (4.0-10.5)
--- NOTE | 2020-07-27 20:53 | EKG REPORT ---
SEVERITY:- ABNORMAL ECG - PACEMAKER SPIKE LIKE ARTIFACTS SINUS RHYTHM NONSPECIFIC T ABNORMALITIES, INFERIOR LEADS : Confirmed by: Trisha Paulino MD 27-Jul-2020 20:52:06
[2020-07-27 20:54] LABS: ALBUMIN 3.2 g/dL (3.5-5.0); ALKALINE PHOSPHATASE 59 U/L (38-126); ASPARTATE AMINO TRANSFERASE 23 U/L (17-59); BILIRUBIN,DIRECT 0.3 mg/dL (0.0-0.4); BILIRUBIN,TOTAL 0.3 mg/dL (0.2-1.3); BLOOD UREA NITROGEN 18 mg/dL (7-20); CREATINE KINASE 47 U/L (55-170); GLUCOSE 89 mg/dL (75-110); POTASSIUM 4.4 mmol/L (3.6-5.0); TOTAL PROTEIN 5.4 g/dL (6.3-8.2)
[2020-07-27 21:00] LABS: CARBON DIOXIDE 25 mmol/L (22-30); CHLORIDE 107 mmol/L (98-107)
[2020-07-27 21:02] LABS: ANION GAP 3 (5-19)
[2020-07-27 21:09] LABS: CREATINE KINASE MB < 0.22 ng/mL (<4.55); TROPONIN I < 0.012 ng/mL
[2020-07-27] MEDS ORDERED: MORPHINE SULFATE 10 MG/ML INJ IV ONE (21:34)
[2020-07-27] MEDS ORDERED: NORMAL SALINE 1000 ML 1,000 ML IV ONE (21:58)
--- NOTE | 2020-07-27 23:06 | RADIOLOGY REPORT (SQ) ---
CT ABDOMEN AND PELVIS WITH INTRAVENOUS CONTRAST: 07/27/2020 10:03 PM CDT HISTORY: 59-year old with lower abdominal pain. COMPARISON: None available TECHNIQUE: Axial contiguous images were obtained from the lung bases to the proximal femurs with intravenous intravenous contrast administered. Sagittal and coronal reconstructions were also obtained and reviewed. This exam was performed according to our departmental dose-optimization program, which includes automated exposure control, adjustment of the mA and/or KV according to the patient's size and/or use of iterative reconstruction technique. FINDINGS: No focal consolidative airspace opacities are seen. No discrete pleural effusions are seen. The cardiac silhouette is mildly enlarged. The visualized hepatic parenchyma is unremarkable. No focal enhancing lesion is seen. The gallbladder demonstrates no evidence of calcified gallstones. The spleen and pancreas are normal in contour. The bilateral adrenal glands appear unremarkable. Both kidneys demonstrate no evidence of hydronephrosis. There are punctate calcification seen at the inferior pole of the right kidney. There is a small left renal hypodensity most likely representing a cyst. The urinary bladder is mildly distended, and appears grossly unremarkable. The stomach is not well distended. There is a stimulator device tip seen at the stomach. The small bowel loops appear unremarkable. No pericolonic inflammatory stranding is seen. There are multiple diverticula seen within the sigmoid and descending colon, without evidence to suggest diverticulitis. The appendix is not visualized, and may be surgically absent. There is no evidence of pneumoperitoneum or free fluid. The aorta and IVC appear normal in size. No significantly enlarged lymph nodes are seen in the abdomen or pelvis. Review of the bone show no evidence of any suspicious lytic or blastic lesions. Multilevel degenerative changes are seen within the lumbar spine. There is minimal anterolisthesis of L5 over S1 by 2 to 3 mm. IMPRESSION: No acute process is seen within the abdomen or pelvis.
[2020-07-28 00:37] LABS: AMORPHOUS SEDIMENT,URINE TRACE /HPF; APPEARANCE,URINE CLEAR; BILIRUBIN,URINE NEGATIVE (NEGATIVE); COLOR,URINE YELLOW; GLUCOSE, URINE NEGATIVE (NEGATIVE); KETONES,URINE NEGATIVE (NEGATIVE); LEUKOCYTE ESTERASE,URINE NEGATIVE (NEGATIVE); NITRITE,URINE NEGATIVE (NEGATIVE); PROTEIN,URINE NEGATIVE (NEGATIVE); UROBILINOGEN,URINE NEGATIVE mg/dL (<2.0)
--- NOTE | 2020-07-28 01:03 | ER Document Report ---
ED Dizziness/Weakness - General Chief Complaint: Syncope Stated Complaint: SYNCOPAL EPISODES Time Seen by Provider: 07/27/20 21:11 Primary Care Provider: POP MARK PA-C [Primary Care Provider] - Follow up as needed Information source: Patient TRAVEL OUTSIDE OF THE [place] IN LAST 30 DAYS: No - HPI Notes: Patient presents after syncopal episode at home. Patient has been having some problems with his right knee that is included pain and swelling. He has been seen a doctor at another facility for this. In the meantime he walks with a cane. states patient was walking with a cane into the kitchen when he fell to his knees and was "out of it" for a few seconds. Paramedics state that when they arrived his blood pressure was 78 systolic and heart rate was in the 40s and 50s. He did receive a approximate 500 cc fluid bolus. He states that he remembers feeling lightheaded. He currently denies any pain but states that he feels weak. The weakness is constant. It is diffuse. It is worse with exertion and better with rest. He states the only other time he had a syncopal episode was several years ago after repeated episodes of vomiting. He states that he was was having a normal day to approximately dinnertime when he states he felt weak and took a nap. It was after taking his nap that he got up and had this episode. Patient does take metoprolol and states that he took 1 in the morning and then he took another 1 approximately 4 PM. The one that he took at approximately 4 PM appears to be just before the episode where he was weak and has taken a nap and then had syncope. He states he has been on this medicine for a long time of the dosage has not been changed. He denies that he could have taken more than the appropriate amount or that he could have became confused. No vomiting or diarrhea recently. No fevers. - Related Data Allergies/Adverse Reactions: celecoxib [From Celebrex] Allergy (Verified 08/28/18 01:55) ibuprofen [From Motrin] Allergy (Verified 08/28/18 01:55) Home Medications: Celebrex. motrin. promethazine. eliquis. furosemide. metoprolol. tamsulosin. cephalexin. tizanadice. metocloramide. cetirizine Past Medical History - Social History Smoking Status: Never Smoker Chew tobacco use (# tins/day): No Frequency of alcohol use: None Drug Abuse: None Family History: Reviewed & Not Pertinent - Past Medical History Cardiac Medical History: Reports: Hx Congestive Heart Failure, Hx Hypertension Denies: Hx Coronary Artery Disease, Hx Heart Attack Pulmonary Medical History: Denies: Hx Asthma, Hx Bronchitis, Hx COPD, Hx Pneumonia Neurological Medical History: Denies: Hx Cerebrovascular Accident, Hx Seizures Renal/ Medical History: Denies: Hx Peritoneal Dialysis GI Medical History: Reports: Hx Gastritis, Hx Hiatal Hernia Musculoskeletal Medical History: Reports Hx Arthritis Past Surgical History: Reports: Hx Abdominal Surgery - Fundoplication, Hx Appen dectomy, Hx Bowel Surgery, Hx Orthopedic Surgery - L spine, Hx Tonsillectomy, Other - Misti fundoplication, vagotomy and pyloroplasty, - Immunizations Hx Diphtheria, Pertussis, Tetanus Vaccination: Yes Review of Systems - Review of Systems Constitutional: Weakness. denies: Chills Cardiovascular: denies: Chest pain, Palpitations Respiratory: denies: Cough, Short of breath -: Yes All other systems reviewed and negative Physical Exam - Vital signs Vitals: Resp 13 07/27/20 19:44 Interpretation: Normal - General General appearance: Appears well, Alert - HEENT Head: Normocephalic, Atraumatic Eyes: Normal Pupils: PERRL - Respiratory Respiratory status: No respiratory distress Chest status: Nontender Breath sounds: Normal Chest palpation: Normal - Cardiovascular Rhythm: Regular Heart sounds: Normal auscultation Murmur: No - Abdominal Inspection: Normal Distension: No distension Bowel sounds: Normal Tenderness: Nontender Organomegaly: No organomegaly - Back Back: Normal, Nontender - Extremities General upper extremity: Normal inspection, Nontender, Normal color, Normal ROM, Normal temperature General lower extremity: Edema - 2+ bilaterally, Normal temperature. No: Louisa's sign - Neurological Neuro grossly intact: Yes Cognition: Normal Orientation: AAOx4 [place] Coma Scale Eye Opening: Spontaneous Jones Coma Scale Verbal: Oriented Jones Coma Scale Motor: Obeys Commands [place] Coma Scale Total: 15 Speech: Normal Cranial nerves: Normal Cerebellar coordination: Normal Additional motor exam normals: Equal lens inspector. No: Pronator drift Sensory: Normal - Psychological Associated symptoms: Normal affect, Normal mood - Skin Skin Temperature: Warm Skin Moisture: Dry Skin Color: Normal Course - Re-evaluation Re-evalutation: 07/28/20 02:29 Patient presents with syncope. Head CT is unremarkable. EKG has no significant new changes. I do not see any significant changes on laboratory values. His vital signs are now normal and he had unremarkable orthostatics. It seems that patient may have accidentally taken an extra dose of his beta-roosevelt however this is unclear. I do not see any evidence of any pathology that I feel it would be beneficial for patient to stay in the hospital or have further evaluation in the hospital. Patient is requesting repeatedly to leave at this seems reasonable to have patient follow-up as an outpatient. - Vital Signs Vital signs: Temp Pulse Resp BP Pulse Ox 98.3 F 11 L 117/70 95 07/27/20 19:47 07/27/20 20:01 07/27/20 20:00 07/27/20 20:01 - Laboratory Result Diagrams: 07/27/20 20:23 07/27/20 20:23 Laboratory results interpreted by me: 07/27/20 07/27/20 20:23 20:23 RBC 4.00 L Hgb 11.8 L Hct 35.4 L RDW 15.6 H Sodium 135.0 L Anion Gap 3 L Calcium 8.0 L Creatine Kinase 47 L Total Protein 5.4 L Albumin 3.2 L - Diagnostic Test Radiology reviewed: Image reviewed, Reports reviewed - EKG Interpretation by Wy EKG shows normal: Sinus rhythm Rate: Bradycardia - 56 Rhythm: NSR [place]/QRS: No: RBBB, LBBB When compared to previous EKG there are: No significant change Discharge - Discharge Clinical Impression: Syncope and collapse Condition: Stable Disposition: HOME, SELF-CARE Instructions: Syncopal Episode ([facility]) Additional Instructions: Your blood pressure was very low today. Please call your primary care physician first thing in the morning to make an appointment for tomorrow to have your blood pressure rechecked. You may need a change of your blood pressure medication. Please discuss changing your blood pressure medication with your physician tomorrow. Forms: Return to Work Referrals: POP MARK PA-C [Primary Care Provider] - Follow up tomorrow
--- NOTE | 2020-07-28 02:24 | RADIOLOGY REPORT (SQ) ---
EXAM DESCRIPTION: CT HEAD WITHOUT IV CONTRAST COMPLETED DATE/TME: 07/28/2020 01:00 CLINICAL HISTORY: 59 years, Male, syncope COMPARISON: None. TECHNIQUE: Axial CT images of the brain were obtained without contrast. Sagittal and coronal reformats were performed. [facility] 1017 Images stored on PACS. All CT scanners at this facility use dose modulation, iterative reconstruction, and/or weight based dosing when appropriate to reduce radiation dose to as low as reasonably achievable (ALARA). [facility]: Dose Right [facility]: CareDose [facility]: Dose Right [facility]: Teradose 4D [facility]: [employer] LIMITATIONS: None. FINDINGS: There is no acute cortical infarct, hemorrhage, mass, edema, hydrocephalus, or extra-axial fluid collection. Calcifications of the bilateral basal ganglia are noted. The ojeda-white matter differentiation is preserved. The paranasal sinuses and mastoid air cells are clear. There is no acute fracture. IMPRESSION: No acute intracranial abnormality. TECHNICAL DOCUMENTATION: Quality ID # 436: Final reports with documentation of one or more dose reduction techniques (e.g., Automated exposure control, adjustment of the mA and/or kV according to patient size, use of iterative reconstruction technique) copyright 2010 [employer] - [employer]- All Rights Reserved
[2020-07-28 02:56] VITALS: BP 183/107
== END 2020-07-28 02:56 | disposition home or self-care (01) ==
LOC: ER 19:38
DX: R55 Syncope and collapse (principal); R10.30 Lower abdominal pain, unspecified; M25.561 Pain in right knee; R53.1 Weakness; I50.9 Heart failure, unspecified; I11.0 Hypertensive heart disease with heart failure; Z88.6 Allergy status to analgesic agent
CPT/HCPCS: 93005; 99285; 96361; 96374; 36415; 82553; 82550; 85025; 80053; 81001; 84484; 70450; 74177; 93010; J2270; J7030

== ENCOUNTER → 2020-08-20 | Day surgery (SDC) | payer BC, MEDICARE ==
--- NOTE | 2020-08-20 14:10 | RADIOLOGY REPORT (SQ) ---
EXAM DESCRIPTION: CT RT LOWER EXTREMITY WITH IMAGES COMPLETED DATE/TIME: 08/20/2020 1:42 pm REASON FOR STUDY: M25.561 PAIN IN RIGHT KNEE M25.561 PAIN IN RIGHT KNEE COMPARISON: None. TECHNIQUE: Post arthrographic imaging performed through the right knee with reformatted coronal and sagittal imaging windowed for bone and soft tissues. All CT scanners at this facility use dose modulation, iterative reconstruction, and/or weight based d osing when appropriate to reduce radiation dose to as low as reasonably achievable (ALARA). [facility]: Dose Right [facility]: CareDose [facility]: Dose Right [facility]: Teradose 4D [facility]: Smart [employer] RADIATION DOSE: CT Rad equipment meets quality standard of care and radiation dose reduction techniq ues were employed. CTDIvol: 4.8 mGy. DLP: 150 mGy-cm. mGy. LIMITATIONS: None. FINDINGS: SOFT TISSUES: No regional soft tissue masses or radiopaque foreign body noted. BONES: No suspicious bone lesion. No fracture. JOINT DISTENTION: Adequate distention with contrast. No intra-articular bodies. CHONDRAL SURFACES: Irregular chondral thinning, some of which is full-thickness in the medial compart ment weight-bearing surfaces. Lateral compartment cartilage is relatively well maintained as is newton llofemoral cartilage. MENISCI: Extensive irregular tear in the medial meniscus posterior horn and body OTHER: No other significant finding. IMPRESSION: 1. Medial meniscus tear. 2. Medial compartment chondral loss, some of which is full-thickness. TECHNICAL DOCUMENTATION: JOB ID: [id number] Quality ID # 436: Final reports with documentation of one or more dose reduction techniques (e.g., Au tomated exposure control, adjustment of the mA and/or kV according to patient size, use of iterative reconstruction technique) 2010 [employer]- All Rights Reserved Reading location - IP/workstation name: [email or web address]
--- NOTE | 2020-08-20 14:48 | RADIOLOGY REPORT (SQ) ---
EXAM DESCRIPTION: ARTHRO KNEE NJX CNTRST CT/MRI; FLUORO/NEEDLE PLACEMENT IMAGES COMPLETED DATE/TIME: 08/20/2020 1:44 pm REASON FOR STUDY: M25.561 PAIN IN RIGHT KNEE M25.561 PAIN IN RIGHT KNEE COMPARISON: None. FLUOROSCOPY TIME: 1 minutes 3 images saved to PACS. LIMITATIONS: None. PROCEDURE: Procedure, risks, benefits and alternatives explained to patient who then gave written co nsent. The right knee was marked and a time-out was called for correct marking verification. Entry site marked using fluoroscopic guidance. Knee prepped and draped using sterile technique. Local ane sthesia achieved using 1% lidocaine injection. Hypodermic needle introduced into the joint space und er direct fluoroscopic visualization. Non-ionic contrast instilled to confirm intra-articular positi on. Additional dilute non-ionic contrast instilled. Needle removed and entry site covered with ster ile bandage. No immediate complications noted. TECHNIQUE: Digital images acquired during fluoroscopy and stored on PACS. Patient immediately take n to the CT suite for additional imaging. INJECTION LOCATION: Right anterolateral knee joint CONTRAST TYPE AND AMOUNT: 3 mL Omnipaque 300, 30 mL dilute Omnipaque 300. IMPRESSION: SUCCESSFUL NEEDLE PLACEMENT AND INJECTION FOR RIGHT KNEE CT ARTHROGRAM. COMMENT: None Quality ID 145: Final reports for procedures using fluoroscopy that document radiation exposure zoey brad, or exposure time and number of fluorographic images (if radiation exposure indices are not avail able) TECHNICAL DOCUMENTATION: JOB ID: [id number] 2010 [employer]- All Rights Reserved Reading location - IP/workstation name: [email or web address] [id number]
--- NOTE | 2020-08-20 14:48 | RADIOLOGY REPORT (SQ) ---
EXAM DESCRIPTION: ARTHRO KNEE NJX CNTRST CT/MRI; FLUORO/NEEDLE PLACEMENT IMAGES COMPLETED DATE/TIME: 08/20/2020 1:44 pm REASON FOR STUDY: M25.561 PAIN IN RIGHT KNEE M25.561 PAIN IN RIGHT KNEE COMPARISON: None. FLUOROSCOPY TIME: 1 minutes 3 images saved to PACS. LIMITATIONS: None. PROCEDURE: Procedure, risks, benefits and alternatives explained to patient who then gave written co nsent. The right knee was marked and a time-out was called for correct marking verification. Entry site marked using fluoroscopic guidance. Knee prepped and draped using sterile technique. Local ane sthesia achieved using 1% lidocaine injection. Hypodermic needle introduced into the joint space und er direct fluoroscopic visualization. Non-ionic contrast instilled to confirm intra-articular positi on. Additional dilute non-ionic contrast instilled. Needle removed and entry site covered with ster ile bandage. No immediate complications noted. TECHNIQUE: Digital images acquired during fluoroscopy and stored on PACS. Patient immediately take n to the CT suite for additional imaging. INJECTION LOCATION: Right anterolateral knee joint CONTRAST TYPE AND AMOUNT: 3 mL Omnipaque 300, 30 mL dilute Omnipaque 300. IMPRESSION: SUCCESSFUL NEEDLE PLACEMENT AND INJECTION FOR RIGHT KNEE CT ARTHROGRAM. COMMENT: None Quality ID 145: Final reports for procedures using fluoroscopy that document radiation exposure zoey brad, or exposure time and number of fluorographic images (if radiation exposure indices are not avail able) TECHNICAL DOCUMENTATION: JOB ID: [id number] 2010 [employer]- All Rights Reserved Reading location - IP/workstation name: [email or web address] [id number]
== END ==
LOC: RAD 11:55
PROVIDERS: ATTEND Orthopaedic Surgery
DX: S83.241A Other tear of medial meniscus, current injury, right knee, initial encounter (principal); X58.XXXA Exposure to other specified factors, initial encounter; M25.561 Pain in right knee
CPT/HCPCS: 27369; 77002